=== PATIENT | female | born 1955 | race Caucasian/White ===

== ENCOUNTER 2016-10-16 17:33 | Emergency (ER) | payer OTHER ==
[~2016-10-16] VITALS: Ht 160 cm; Wt 92.6 kg
[~2016-10-16 17:33] MED LIST: CLON2TAB3 PO; DOCU-94 PO; DRGTP50 TD; FURO20TA PO; PRLSR20 PO
[2016-10-16 17:37] VITALS: TEMP 36.7; Ht 160 cm; Wt 92.6 kg
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
--- NOTE | 2016-10-16 18:24 | DIAGNOSTIC IMAGING REPORT ---
SINGLE VIEW CHEST CLINICAL HISTORY: Cough FINDINGS: An AP, portable, upright chest radiograph is compared to study dated 05/05/2015. The examination is degraded by portable technique, apical lordotic positioning, and patient rotation. The cardiomediastinal silhouette is unremarkable. There is chronic elevation of left hemidiaphragm and bibasilar atelectasis. No airspace consolidation is seen typical for pneumonia and there is no large pleural effusion. No pneumothorax is seen. The skeletal structures are osteopenic. Mild thoracic scoliosis is observed. IMPRESSION: No acute cardiopulmonary abnormality. Electronically signed by: Nolan Gambino M.D. 10/16/2016 6:23 PM Dictated Date/Time: 10/16/2016 6:22 PM
--- NOTE | 2016-10-16 18:51 | DIAGNOSTIC IMAGING REPORT ---
CT SCAN OF THE BRAIN WITHOUT IV CONTRAST CLINICAL HISTORY: Headache. COMPARISON STUDY: CT of the brain dated 10/19/2014. TECHNIQUE: Unenhanced axial CT scan of the brain is performed from the vertex to the skull base. CT DOSE: 974.62 mGy.cm FINDINGS: Brain parenchyma: There is minimal subcortical and periventricular microangiopathic change. There is no hemorrhage, mass effect, or evidence of acute territorial ischemia by CT criteria. Gonzalez-white matter is preserved. No extra-axial fluid collection is seen. Ventricles, sulci, cisterns: Normal in configuration. Intracranial vasculature: There is mild atherosclerotic calcification of the cavernous carotid arteries. Calvarium: Unremarkable. Sinuses and mastoids: The visualized paranasal sinuses are clear. The mastoid air cells are well pneumatized. Orbits: The bony orbits are grossly intact. There is evidence of bilateral ocular lens surgery. IMPRESSION: No acute intracranial abnormality. Electronically signed by: Nolan Gambino M.D. 10/16/2016 6:50 PM Dictated Date/Time: 10/16/2016 6:48 PM
[2016-10-16 18:54] LABS: BASO % 0.4 %; BASO ABS # 0.02 K/uL (0-0.2); COMPLETE YES; EOS % 0.8 %; HEMATOCRIT 36.9 % (37-47); IG% 0.2 %; LYMPH % 41.4 %; LYMPH ABS # 2.13 K/uL (1.2-3.4); MEAN CELL VOLUME 89.3 fL (80-100); MEAN CORPUSCULAR HEMOGLOBIN 31.5 pg (25-34); MEAN CORPUSCULAR HGB CONC 35.2 g/dl (32-36); MEAN PLATELET VOLUME 9.5 fL (7.4-10.4); MONO % 7.4 %; NEUT % 49.8 %; PLATELET COUNT 204 K/uL (130-400); RED BLOOD COUNT 4.13 M/uL (4.2-5.4); WHITE BLOOD COUNT 5.15 K/uL (4.8-10.8)
--- NOTE | 2016-10-16 18:55 | DIAGNOSTIC IMAGING REPORT ---
CT SCAN OF THE CERVICAL SPINE CLINICAL HISTORY: Neck pain. COMPARISON STUDY: CT scan of the cervical spine dated 04/22/2012. TECHNIQUE: CT scan of the cervical spine is performed from the skull base to the upper thoracic spine. Images are reviewed in the axial, sagittal, and coronal planes. IV contrast was not administered for this examination. CT DOSE: Reported separately under the concurrently performed CT scan of the brain. FINDINGS: Skeletal structures: The skeletal structures are osteopenic. There is no evidence of fracture or subluxation involving the cervical spine. Vertebral body height is maintained. There is minimal anterolisthesis at C4-C5. Alignment is otherwise preserved. There is straightening of cervical lordosis with reversal centered at C4-C5. The odontoid process and lateral masses are intact. The atlantoaxial articulation is preserved noting productive degenerative change. The spinous processes appear intact. Tiny anterior osteophytes are seen at C5-C6. There is mild multilevel cervical spondylosis. Facet arthropathy is seen at several levels. Intervertebral discs: Mild disc space narrowing is seen at C4-C5 and C5-C6. The remaining disc spaces are well maintained. Central canal: There are tiny posterior disc osteophyte complexes at C3-C4, C4-C5, C5-C6. These may contribute to minimal acquired compromise of the central canal. Soft tissues: The prevertebral and paraspinous soft tissues are within normal limits. There is atherosclerotic calcification of the carotid bulbs. Calvarium: The visualized calvarium at the skull base appears intact. Brain parenchyma: Partially visualized brain parenchyma the skull base is within normal limits. Sinuses and mastoids: The visualized paranasal sinuses are clear. The mastoid air cells are well pneumatized. Lung apices: Mild emphysematous change is seen at the apices. Partially imaged atypical lung parenchyma is otherwise clear as visualized. IMPRESSION: 1. There is no evidence of fracture or subluxation involving the cervical spine. 2. Osteopenia and mild spondylotic change as above. Electronically signed by: Nolan Gambino M.D. 10/16/2016 6:54 PM Dictated Date/Time: 10/16/2016 6:47 PM
[2016-10-16] MEDS ORDERED: ACETAMINOPHEN 500 MG TAB PO STA (19:09)
[2016-10-16 19:11] LABS: BUN/CREATININE RATIO 11.5 (10-20); CALCIUM 8.9 mg/dl (8.5-10.1); MAGNESIUM 2.2 mg/dl (1.8-2.4); POTASSIUM 3.7 mmol/L (3.5-5.1)
[2016-10-16 19:17] LABS: URINE APPEARANCE CLEAR (CLEAR); URINE BILIRUBIN NEG (NEG); URINE COLOR YELLOW; URINE NITRITE NEG (NEG); URINE PH 6.5 (4.5-7.5); UROBILINOGEN NEG (NEG); ZZUR CULT IF INDIC CLEAN CATCH NO
[2016-10-16 19:22] LABS: ALB/GLOB RATIO 1.1 (0.9-2); THYROID STIMULATING HORMONE 2.1 uIu/ml (0.300-4.500)
[2016-10-16 19:43] LABS: MANUAL MICROSCOPIC REQUIRED? NO; REVIEW REQ? NO
[2016-10-16 20:10] LABS: LYME DISEASE AB IGG NEG (NEG); LYME DISEASE AB IGM NEG (NEG)
[2016-10-16 22:02] VITALS: PULSE 78; O2SAT 97
[2016-10-16 22:05] VITALS: BP 130/78
[2016-10-17 05:05] LABS: RAPID PLASMA REAGIN NONREACTIVE (NONREACT)
[2016-10-20 10:08] LABS: CHLAMYDIA TRACH RNA*** NOT DETECTED (NOT DETECTED); GC (NEIS GONORRHOEAE)RNA** NOT DETECTED (NOT DETECTED)
== END 2016-10-16 22:07 | disposition home or self-care (01) ==
LOC: C.EDB 17:34
DX: F41.9 Anxiety disorder, unspecified (principal); Z20.2 Contact with and (suspected) exposure to infections with a predominantly sexual mode of transmission; C54.2 Malignant neoplasm of myometrium; I10 Essential (primary) hypertension; F43.10 Post-traumatic stress disorder, unspecified; G45.9 Transient cerebral ischemic attack, unspecified; Z82.49 Family history of ischemic heart disease and other diseases of the circulatory system; F17.200 Nicotine dependence, unspecified, uncomplicated

== ENCOUNTER 2017-06-25 11:35 | Inpatient (IN) | payer OTHER ==
[~2017-06-25] VITALS: Ht 160 cm; Wt 89.4 kg
[2017-06-25] MEDS ORDERED: ONDANSETRON INJ 2 MG/ML 2 ML VIAL IV STA (12:13)
--- NOTE | 2017-06-25 12:38 | EMERGENCY ROOM VISIT NOTE ---
History Report prepared by Faith: Chet Estrella Under the Supervision of: Dr. Srinivasa Garg D.O. First contact with patient: 11:57 Chief Complaint: SWELLING TO EXTREMITY Stated Complaint: SEVERE SWELLING AND PAIN History of Present Illness The patient is a 61 year old female who presents to the Emergency Room with complaints of worsening pain in the left lower extremity that she has been experiencing for the past 2 months. The patient has an extensive history of Lumbar back surgeries and has followed with multiple different surgeons. The patient started to notice "severe" pain in the left hip, knee, and groin 2 months ago. This are all new symptoms that are separate from her normal back pain. She describes the pain in her left groin as "burning" and "on fire." She is also complaining of a migraine headache across her forehead. She has a history of migraines, but has not had one in a long time. There is pain in her left lumbar area that is radiating into her left gluteal region. She was sent here by a physician today with concern for fluid accumulation in the left knee, and to search for a possible deep vein thrombosis. She is not on any blood thinners. The back surgeries have been performed at L3, L4, L5, and S1. She did have a MRI of the Left Knee and Hip performed Source of History: patient Onset: 2 months [employer] Position: leg (left), knee (left), other (Left hip, left groin) Quality: burning Timing: worsening Associated Symptoms: + headache Review of Systems See HPI for pertinent positives & negatives. A total of 10 systems reviewed and were otherwise negative. Past Medical & Surgical Medical Problems: (1) Anxiety (2) Depression (3) Dyslipidemia Surgical Problems: (1) H/O tubal ligation (2) History of lumbar surgery (3) S/P lumbar fusion (4) S/P rotator cuff repair Family History FH: lung disease FHx: heart disease Kidney disease Social History Smoking Status: Current Every Day Smoker Alcohol Use: none Drug Use: none Marital Status: single Housing Status: lives with family Occupation Status: employed Current/Historical Medications Scheduled Omeprazole (Prilosec), 20 MG PO DAILY Scheduled PRN Clonazepam (Klonopin), 2 MG PO BID PRN for Anxiety Furosemide (Lasix), 20 MG PO DAILY PRN for edema Allergies Coded Allergies: Penicillin V (Verified Allergy, Severe, HIVES/SOB, 3/22/18) Sulfa Antibiotics (Verified Allergy, Mild, RASH, 06/25/17) Bupropion (Verified Allergy, Unknown, generalized swelling, 06/25/17) Cephalexin (Verified Allergy, Unknown, ? reaction, 06/25/17) Hydrocortisone (Verified Allergy, Unknown, pruritis, 06/25/17) with ear drops Ibuprofen (Verified Allergy, Unknown, edema, 06/25/17) Macrolides and Ketolides (Verified Allergy, Unknown, pruritis and rash, ) patient states she is allergic to "all -mycins" Methylprednisolone (Verified Allergy, Unknown, CHF, 06/25/17) Physical Exam Vital Signs Date Time Temp Pulse Resp B/P (MAP) Pulse Ox O2 Delivery O2 Flow Rate FiO2 06/25/17 17:29 64 20 109/65 97 Room Air 06/25/17 15:57 68 18 133/80 96 Room Air 06/25/17 14:36 68 20 134/62 99 Room Air 06/25/17 11:53 36.7 87 20 156/83 98 Room Air Physical Exam GENERAL: Patient is awake, alert, and anxious/uncomfortable appearing. She is tearful. EYES: The conjunctivae are clear. The pupils are round and reactive. EARS, NOSE, MOUTH AND THROAT: The nose is without any evidence of any deformity. Mucous membranes are moist tongue is midline NECK: The neck is nontender and supple. RESPIRATORY: Normal respiratory effort is noted there is no evidence of wheezing rhonchi or rales CARDIOVASCULAR: Regular rate and rhythm noted there no murmurs rubs or gallops normal S1 normal S2 GASTROINTESTINAL: The abdomen is soft. Bowel sounds are present in all quadrants. Abdomen is nontender BACK: There is previous surgical scars noted in the lower thoracic and lumbar spine. No midline tenderness or or step-off noted range of motion in flexion extension as well as rotation no signs of muscle spasm noted MUSCULOSKELETAL/EXTREMITIES: There is no evidence of gross deformity. There is pain with ROM of the left hip, left knee. There is no warmth appreciated in the left knee. SKIN: There is no obvious evidence of any rash. There are no petechiae, pallor or cyanosis noted. Pulses were symmetric. NEUROLOGIC: Patient is awake alert and oriented x3. Patellar reflexes are 1+ bilaterally. Achilles reflex is absent on the left and 1+ on the right. Great toe raise is diminished on the left. Medical Decision & Procedures ER Provider Diagnostic Interpretation: Radiology results as stated below per my review and radiologist interpretation: LEFT LOWER EXTREMITY VENOUS DOPPLER HISTORY: Left leg pain and burning COMPARISON STUDY: None. FINDINGS: There is normal compressibility, flow, and augmentation within the left lower extremity deep venous system. IMPRESSION: No DVT within the left lower extremity. Electronically signed by: Antonio Lew M.D. 06/25/2017 1:47 PM Dictated Date/Time: 06/25/2017 1:46 PM LUMBAR SPINE W/O CONTRAST CLINICAL HISTORY: 61 years-old Female presenting with low back pain, tailbone numbness, recent migraine, history of stroke, left-sided groin pain, no history of cancer or injury. TECHNIQUE: Multisequence, multiplanar MR imaging of the lumbar spine was performed without the use of intravenous contrast. IV contrast: None. COMPARISON: CT from 11/22/2015. FINDINGS: Localizer images: Bilateral posterior transpedicular screw and bubba fixation of L4-S1 with interbody spacers at L4-5 and L5-S1. In addition, laminectomy defects at L4-5 noted. No fluid collection in the operative bed. Nonspecific T2 hyperintensity in the operative bed likely indicates edema or granulation tissue. Adequate posterior decompression. No convincing evidence of a pseudomeningocele. Normal lumbar lordosis. Vertebral bodies maintain normal height, alignment, and bone marrow signal intensity. Mild disc desiccation of L2-3 with slight height loss. Small disc osteophyte complexes noted in the lower thoracic spine. Small disc bulges in combination with ligamentum flavum hypertrophy and facet arthropathy result in mild bilateral neural foraminal narrowing at L2-3 and moderate right and mild left neural foraminal narrowing at L3-4. The disc bulge may abut the exiting right L3 nerve root. No significant spinal canal narrowing. The spinal cord ends in good position at L1. Cauda equina normal in morphology. Paraspinal soft tissues normal apart from postsurgical change. IMPRESSION: 1. Postsurgical changes of L4-S1 posterior fusion with L4-5 laminectomies. Adequate posterior decompression. 2. Degenerative change at L2-3 and L3-4 results in neural foraminal narrowing most severe on the right at L3-4 with abutment of the exiting right L3 nerve root. 3. No evidence of cauda equina impingement or significant spinal canal stenosis. Electronically signed by: Mart Kim M.D. 06/25/2017 2:30 PM Dictated Date/Time: 06/25/2017 2:25 PM Brain MRI WITHOUT CONTRAST HISTORY: Head CT 10/16/2016. TECHNIQUE: Multiplanar multisequence MRI of the brain was performed without the use of contrast. COMPARISON STUDY: None. FINDINGS: There are no areas of restricted diffusion to suggest acute infarction. The midline structures are intact. The paranasal sinuses are clear. The mastoid air cells are clear. The ventricles and sulci are within normal limits for age. There is no mass, hematoma, midline shift. The major vascular flow-voids at the skull base are well maintained. Multiple scattered foci of T2 hyperintensity seen within the periventricular and subcortical white matter of the supratentorial brain. IMPRESSION: 1. No acute intracranial abnormality. 2. Scattered foci of T2 hyperintensity seen within the periventricular and subcortical white matter are nonspecific but favor microvascular ischemic change. Migraines or less likely a demyelinating disease or Lyme's disease could also have a similar appearance. Electronically signed by: Antonio Lew M.D. 06/25/2017 2:13 PM Dictated Date/Time: 06/25/2017 2:07 PM Laboratory Results 06/25/17 12:37 Red Blood Count 4.65, Mean Corpuscular Volume 89.2, Mean Corpuscular Hemoglobin 31.8, Mean Corpuscular Hemoglobin Concent 35.7, Mean Platelet Volume 9.6, Neutrophils (%) (Auto) 56.0, Lymphocytes (%) (Auto) 35.6, Monocytes (%) (Auto) 7.3, Eosinophils (%) (Auto) 0.7, Basophils (%) (Auto) 0.2, Neutrophils # (Auto) 3.29, Lymphocytes # (Auto) 2.09, Monocytes # (Auto) 0.43, Eosinophils # (Auto) 0.04, Basophils # (Auto) 0.01 06/25/17 12:37 Test 06/25/17 12:37 06/25/17 14:40 White Blood Count 5.87 K/uL (4.8-10.8) Red Blood Count 4.65 M/uL (4.2-5.4) Hemoglobin 14.8 g/dL (12.0-16.0) Hematocrit 41.5 % (37-47) Mean Corpuscular Volume 89.2 fL (80-100) Mean Corpuscular Hemoglobin 31.8 pg (25-34) Mean Corpuscular Hemoglobin Concent 35.7 g/dl (32-36) Platelet Count 234 K/uL (130-400) Mean Platelet Volume 9.6 fL (7.4-10.4) Neutrophils (%) (Auto) 56.0 % Lymphocytes (%) (Auto) 35.6 % Monocytes (%) (Auto) 7.3 % Eosinophils (%) (Auto) 0.7 % Basophils (%) (Auto) 0.2 % Neutrophils # (Auto) 3.29 K/uL (1.4-6.5) Lymphocytes # (Auto) 2.09 K/uL (1.2-3.4) Monocytes # (Auto) 0.43 K/uL (0.11-0.59) Eosinophils # (Auto) 0.04 K/uL (0-0.5) Basophils # (Auto) 0.01 K/uL (0-0.2) RDW Standard Deviation 38.9 fL (36.4-46.3) RDW Coefficient of Variation 12.1 % (11.5-14.5) Immature Granulocyte % (Auto) 0.2 % Immature Granulocyte # (Auto) 0.01 K/uL (0.00-0.02) Anion Gap 4.0 mmol/L (3-11) Est Creatinine Clear Calc Drug Dose 63.9 ml/min Estimated GFR () 72.2 Estimated GFR (Non- 62.3 BUN/Creatinine Ratio 15.4 (10-20) Calcium Level 9.4 mg/dl (8.5-10.1) Total Bilirubin 0.4 mg/dl (0.2-1) Direct Bilirubin < 0.1 mg/dl (0-0.2) Aspartate Amino Transf (AST/SGOT) 13 U/L (15-37) Alanine Aminotransferase (ALT/SGPT) 17 U/L (12-78) Alkaline Phosphatase 63 U/L (45-117) Total Protein 8.1 gm/dl (6.4-8.2) Albumin 4.1 gm/dl (3.4-5.0) Lipase 104 U/L (73-393) Lyme Disease IgG Antibody NEG (NEG) Lyme Disease IgM Antibody NEG (NEG) Urine Color YELLOW Urine Appearance CLEAR (CLEAR) Urine pH 6.5 (4.5-7.5) Urine Specific [place] 1.006 (1.000-1.030) Urine Protein NEG (NEG) Urine Glucose (UA) NEG (NEG) Urine Ketones NEG (NEG) Urine Occult Blood NEG (NEG) Urine Nitrite NEG (NEG) Urine Bilirubin NEG (NEG) Urine Urobilinogen NEG (NEG) Urine Leukocyte Esterase NEG (NEG) Laboratory results per my review. Medications Administered Medications (Trade) Dose Ordered Sig/Rolando Route Start Time Stop Time Status Last Admin Dose Admin Morphine Sulfate (MoRPHine SULFATE INJ) 4 mg Q15M PRN IV 06/25/17 12:15 06/25/17 18:57 DC 06/25/17 16:03 4 MG Ondansetron HCl (Zofran Inj) 4 mg NOW STAT IV 06/25/17 12:13 06/25/17 12:16 DC 06/25/17 12:43 4 MG Lorazepam (Ativan Inj) 1 mg NOW STAT IV 06/25/17 12:41 06/25/17 12:42 DC 06/25/17 12:41 1 MG Hydromorphone HCl (Dilaudid Inj) 0.5 mg STK-MED ONCE .ROUTE 06/25/17 17:25 06/25/17 17:26 DC 06/25/17 17:25 0.25 MG ED Course 1207: The patient was evaluated in room C10. A complete history and physical examination were performed. 1213: Ordered Zofran 4 mg IV, Morphine Sulfate 4 mg IV. 1241: Ordered Ativan 1 mg IV. 1617: I discussed the case with Dr. [facility] Hospitalist. She will evaluate the patient for further treatment. Medical Decision Differential diagnosis: Etiologies such as musculoskeletal, disc herniation, fracture, aortic disease, metastatic disease, cord compression, discitis, infection, renal colic, gastrointestinal, acute exacerbation of chronic back pain, sciatica, cauda equina, as well as others were entertained. Nursing notes reviewed. Patient's outpatient radiographic studies were also reviewed. The patient is a 61-year-old female who presented to the emergency department for an evaluation of significant left lower extremity pain. She has been seen for this pain previously and initially this was felt to be isolated to her left lower extremity. She appears to have pain that radiates into the left groin as well as the left side of the back. She has had previous back surgery in the past and states that her lower back feels "numb" and goes down into her coccyx region. I was concerned the patient may be having significant radicular symptoms from her lumbar spine. She also is very concerned about a severe headache that she has as well. The patient was treated with IV pain medication and IV anti-medics. She also requested to have medication for anxiety before having the MRI. I discussed the patient's laboratory and radiographic studies with her. She does appear to have a history and physical exam consistent with a lumbar radiculopathy. No definite cause for her lumbar radiculopathy was found on MRI of the lumbar spine however. This is also significantly worsened in her left hip and her left knee. She did have an MRI of the left knee. This does not appear to be inflammatory or infectious nature. The patient does not wish to have any steroids although given her allergy history I do not feel this would be recommended at this time. The patient was still having very significant pain. For this reason I discussed her case with the on-call [facility] hospitalist. It is possible she may require an inpatient orthopedic consult to further evaluate the cause of her pain and whether or not she requires further imaging of the left hip and left knee. Medication Reconcilliation Current Medication List: was personally reviewed by me Blood Pressure Screening Patient's blood pressure: Elevated blood pressure Referred to hospitalist. Consults Time Called: 1612 Consulting Physician: Dr. Kevin Mallory Returned Call: 1617 I discussed the case with Dr. Kevin Mallory. She will evaluate the patient for further treatment. Impression Primary Impression: Intractable low back pain Additional Impression: Intractable neuropathic pain of left lower extremity Scribe Attestation The scribe's documentation has been prepared under my direction and personally reviewed by me in its entirety. I confirm that the note above accurately reflects all work, treatment, procedures, and medical decision making performed by me. Departure Information Dispostion Being Evaluated By Hospitalist Referrals Deonna Samson M.D. (MEDICAL) (PCP) Patient Instructions [facility] Problem Qualifiers
[2017-06-25] MEDS ORDERED: LORAZEPAM 2 MG/ML 1 ML VIAL IV STA (12:41)
[2017-06-25] MEDS: MoRPHine SULFATE 4 MG/ML 1 ML CARP\\VIAL IV PRN ×3 (12:43→16:03)
[2017-06-25 12:49] LABS: BASO % 0.2 %; BASO ABS # 0.01 K/uL (0-0.2); EOS % 0.7 %; EOS ABS # 0.04 K/uL (0-0.5); HEMATOCRIT 41.5 % (37-47); HEMOGLOBIN 14.8 g/dL (12.0-16.0); IG# 0.01 K/uL (0.00-0.02); LYMPH % 35.6 %; LYMPH ABS # 2.09 K/uL (1.2-3.4); MEAN CELL VOLUME 89.2 fL (80-100); MEAN CORPUSCULAR HEMOGLOBIN 31.8 pg (25-34); MEAN CORPUSCULAR HGB CONC 35.7 g/dl (32-36); MEAN PLATELET VOLUME 9.6 fL (7.4-10.4); MONO % 7.3 %; MONO ABS # 0.43 K/uL (0.11-0.59); NEUT ABS # 3.29 K/uL (1.4-6.5); PLATELET COUNT 234 K/uL (130-400); RED CELL DISTRIBUTION WIDTH CV 12.1 % (11.5-14.5); RED CELL DISTRIBUTION WIDTH SD 38.9 fL (36.4-46.3); WHITE BLOOD COUNT 5.87 K/uL (4.8-10.8)
[2017-06-25 13:09] LABS: ALBUMIN 4.1 gm/dl (3.4-5.0); ALT/SGPT 17 U/L (12-78); AST/SGOT 13 U/L (15-37); BLOOD UREA NITROGEN 15 mg/dl (7-18); CALCIUM 9.4 mg/dl (8.5-10.1); CARBON DIOXIDE 27 mmol/L (21-32); CREATININE 0.98 mg/dl (0.60-1.20); GLUCOSE 92 mg/dl (70-99); LIPASE 104 U/L (73-393); SODIUM 137 mmol/L (136-145)
[2017-06-25 13:12] LABS: ALKALINE PHOSPHATASE 63 U/L (45-117); TOTAL PROTEIN 8.1 gm/dl (6.4-8.2)
--- NOTE | 2017-06-25 13:48 | DIAGNOSTIC IMAGING REPORT ---
LEFT LOWER EXTREMITY VENOUS DOPPLER HISTORY: Left leg pain and burning COMPARISON STUDY: None. FINDINGS: There is normal compressibility, flow, and augmentation within the left lower extremity deep venous system. IMPRESSION: No DVT within the left lower extremity. Electronically signed by: Antonio Lew M.D. 06/25/2017 1:47 PM Dictated Date/Time: 06/25/2017 1:46 PM
[2017-06-25] MEDS ORDERED: PRLSR20 PO (14:00)
--- NOTE | 2017-06-25 14:14 | DIAGNOSTIC IMAGING REPORT ---
Brain MRI WITHOUT CONTRAST HISTORY: Head CT 10/16/2016. TECHNIQUE: Multiplanar multisequence MRI of the brain was performed without the use of contrast. COMPARISON STUDY: None. FINDINGS: There are no areas of restricted diffusion to suggest acute infarction. The midline structures are intact. The paranasal sinuses are clear. The mastoid air cells are clear. The ventricles and sulci are within normal limits for age. There is no mass, hematoma, midline shift. The major vascular flow-voids at the skull base are well maintained. Multiple scattered foci of T2 hyperintensity seen within the periventricular and subcortical white matter of the supratentorial brain. IMPRESSION: 1. No acute intracranial abnormality. 2. Scattered foci of T2 hyperintensity seen within the periventricular and subcortical white matter are nonspecific but favor microvascular ischemic change. Migraines or less likely a demyelinating disease or Lyme's disease could also have a similar appearance. Electronically signed by: Antonio Lew M.D. 06/25/2017 2:13 PM Dictated Date/Time: 06/25/2017 2:07 PM
--- NOTE | 2017-06-25 14:31 | DIAGNOSTIC IMAGING REPORT ---
LUMBAR SPINE W/O CONTRAST CLINICAL HISTORY: 61 years-old Female presenting with low back pain, tailbone numbness, recent migraine, history of stroke, left-sided groin pain, no history of cancer or injury. TECHNIQUE: Multisequence, multiplanar MR imaging of the lumbar spine was performed without the use of intravenous contrast. IV contrast: None. COMPARISON: CT from 11/22/2015. FINDINGS: Localizer images: Bilateral posterior transpedicular screw and bubba fixation of L4-S1 with interbody spacers at L4-5 and L5-S1. In addition, laminectomy defects at L4-5 noted. No fluid collection in the operative bed. Nonspecific T2 hyperintensity in the operative bed likely indicates edema or granulation tissue. Adequate posterior decompression. No convincing evidence of a pseudomeningocele. Normal lumbar lordosis. Vertebral bodies maintain normal height, alignment, and bone marrow signal intensity. Mild disc desiccation of L2-3 with slight height loss. Small disc osteophyte complexes noted in the lower thoracic spine. Small disc bulges in combination with ligamentum flavum hypertrophy and facet arthropathy result in mild bilateral neural foraminal narrowing at L2-3 and moderate right and mild left neural foraminal narrowing at L3-4. The disc bulge may abut the exiting right L3 nerve root. No significant spinal canal narrowing. The spinal cord ends in good position at L1. Cauda equina normal in morphology. Paraspinal soft tissues normal apart from postsurgical change. IMPRESSION: 1. Postsurgical changes of L4-S1 posterior fusion with L4-5 laminectomies. Adequate posterior decompression. 2. Degenerative change at L2-3 and L3-4 results in neural foraminal narrowing most severe on the right at L3-4 with abutment of the exiting right L3 nerve root. 3. No evidence of cauda equina impingement or significant spinal canal stenosis. Electronically signed by: Mart Kim M.D. 06/25/2017 2:30 PM Dictated Date/Time: 06/25/2017 2:25 PM
[2017-06-25] MEDS ORDERED: HYDROmorphone INJ 0.5 MG/0.5 ML SYR ONE (17:25)
[2017-06-25] MEDS ORDERED: HYDROmorphone INJ 0.5 MG/0.5 ML SYR IV ONE (17:30)
[2017-06-25] MEDS ORDERED: ACETAMINOPHEN 325 MG TAB PO PRN (17:30)
[2017-06-25] MEDS ORDERED: CLONAZEPAM 1 MG TAB PO PRN (17:45)
[2017-06-25 18:30] VITALS: O2SAT 94
--- NOTE | 2017-06-25 19:13 | History and Physical ---
History & Physical Date & Time of Service: Jun 25, 2017 ~ 17:00 Chief Complaint: Left Knee and Hip Pain Primary Care Physician: Deonna Samson M.D. (MEDICAL) History of Present Illness 61-year-old female who presents to the ER with left hip and knee pain. Patient reports increasing hip and knee pain for the past few months. Patient has been evaluated as an outpatient with [facility] orthopedics. Patient had an x-ray of her hip in April that showed osteoarthritis. MRI of the left knee on 2017 showed a small to moderate sized Dennison's cyst. Patient was placed in a left knee brace however she reports no improvement in her symptoms with use of it. 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 She has pain in her low back that radiates around into the left hip and to the left groin and down the leg. She also has pain behind the left knee that she feels radiates up into the left hip as well. Pain is severe. She has had a persistent headache for the past several days. She feels it is due to the anxiety of the severe hip and knee pain. She denies chest pain or shortness of breath. No lightheadedness, dizziness, diaphoresis, or syncopal events. No abdominal pain, nausea, vomiting, or diarrhea. She denies fever and chills. No urinary symptoms. In the ED, patient had brain and lumbar spine MRIs and left lower extremity Doppler that are unremarkable. Labs are unremarkable. Vital signs are stable. Patient was given IV morphine, which she reports only relieved her pain for a few minutes. Past Medical/Surgical History Medical Problems: (1) Anxiety Status: Chronic (2) Depression Status: Chronic (3) Dyslipidemia Status: Chronic Surgical Problems: (1) H/O tubal ligation Status: Chronic (2) History of lumbar surgery Status: Resolved (3) S/P lumbar fusion Status: Chronic (4) S/P rotator cuff repair Status: Chronic Family History FHx: heart disease FATHER MOTHER Social History Smoking Status: Current Every Day Smoker Alcohol Use: none Immunizations History of Tetanus Vaccine?: Yes Tetanus Immunization Date: May 06, 2010 History of Pneumococcal: Yes Pneumococcal Date: May 06, 2010 Allergies Coded Allergies: Penicillin V (Verified Allergy, Severe, HIVES/SOB, 06/25/17) Sulfa Antibiotics (Verified Allergy, Mild, RASH, 06/25/17) Bupropion (Verified Allergy, Unknown, generalized swelling, 06/25/17) Cephalexin (Verified Allergy, Unknown, ? reaction, 06/25/17) Hydrocortisone (Verified Allergy, Unknown, pruritis, 06/25/17) with ear drops Ibuprofen (Verified Allergy, Unknown, edema, 06/25/17) Macrolides and Ketolides (Verified Allergy, Unknown, pruritis and rash, ) patient states she is allergic to "all -mycins" Methylprednisolone (Verified Allergy, Unknown, CHF, 06/25/17) Home Medications Scheduled Omeprazole (Prilosec), 20 MG PO DAILY Scheduled PRN Clonazepam (Klonopin), 2 MG PO BID PRN for Anxiety Furosemide (Lasix), 20 MG PO DAILY PRN for edema Review of Systems ROS per HPI, all other systems reviewed and negative Physical Exam Vital Signs Date Time Temp Pulse Resp B/P (MAP) Pulse Ox O2 Delivery O2 Flow Rate FiO2 06/25/17 18:16 62 20 113/60 95 Room Air 06/25/17 17:29 64 20 109/65 97 Room Air 06/25/17 15:57 68 18 133/80 96 Room Air 06/25/17 14:36 68 20 134/62 99 Room Air 06/25/17 11:53 36.7 87 20 156/83 98 Room Air General Appearance: WD/WN, no apparent distress Head: normocephalic, atraumatic Eyes: normal inspection, EOMI, sclerae normal ENT: hearing grossly normal, + pertinent finding (Mucous membranes moist) Neck: supple, no JVD, trachea midline Respiratory/Chest: lungs clear, normal breath sounds, no respiratory distress Cardiovascular: regular rate, rhythm, no edema, normal peripheral pulses Abdomen/GI: normal bowel sounds, non tender, soft, no organomegaly Extremities/Musculoskelatal: no calf tenderness, normal capillary refill, + pertinent finding (Pain with palpation over the left hip and into the left groin , pain with palpation of the left posterior knee) Neurologic/Psych: no motor/sensory deficits, alert, normal mood/affect, oriented x 3 Skin: normal color, warm/dry Diagnostics Laboratory Results Results Past 24 Hours Test 06/25/17 12:37 06/25/17 14:40 Range/Units White Blood Count 5.87 4.8-10.8 K/uL Red Blood Count 4.65 4.2-5.4 M/uL Hemoglobin 14.8 12.0-16.0 g/dL Hematocrit 41.5 37-47 % Mean Corpuscular Volume 89.2 80-100 fL Mean Corpuscular Hemoglobin 31.8 25-34 pg Mean Corpuscular Hemoglobin Concent 35.7 32-36 g/dl Platelet Count 234 130-400 K/uL Mean Platelet Volume 9.6 7.4-10.4 fL Neutrophils (%) (Auto) 56.0 % Lymphocytes (%) (Auto) 35.6 % Monocytes (%) (Auto) 7.3 % Eosinophils (%) (Auto) 0.7 % Basophils (%) (Auto) 0.2 % Neutrophils # (Auto) 3.29 1.4-6.5 K/uL Lymphocytes # (Auto) 2.09 1.2-3.4 K/uL Monocytes # (Auto) 0.43 0.11-0.59 K/uL Eosinophils # (Auto) 0.04 0-0.5 K/uL Basophils # (Auto) 0.01 0-0.2 K/uL RDW Standard Deviation 38.9 36.4-46.3 fL RDW Coefficient of Variation 12.1 11.5-14.5 % Immature Granulocyte % (Auto) 0.2 % Immature Granulocyte # (Auto) 0.01 0.00-0.02 K/uL Sodium Level 137 136-145 mmol/L Potassium Level 4.0 3.5-5.1 mmol/L Chloride Level 106 98-107 mmol/L Carbon Dioxide Level 27 21-32 mmol/L Anion Gap 4.0 3-11 mmol/L Blood Urea Nitrogen 15 7-18 mg/dl Creatinine 0.98 0.60-1.20 mg/dl Est Creatinine Clear Calc Drug Dose 63.9 ml/min Estimated GFR () 72.2 Estimated GFR (Non- 62.3 BUN/Creatinine Ratio 15.4 10-20 Random Glucose 92 70-99 mg/dl Calcium Level 9.4 8.5-10.1 mg/dl Total Bilirubin 0.4 0.2-1 mg/dl Direct Bilirubin < 0.1 0-0.2 mg/dl Aspartate Amino Transf (AST/SGOT) 13 15-37 U/L Alanine Aminotransferase (ALT/SGPT) 17 12-78 U/L Alkaline Phosphatase 63 45-117 U/L Total Protein 8.1 6.4-8.2 gm/dl Albumin 4.1 3.4-5.0 gm/dl Lipase 104 73-393 U/L Lyme Disease IgG Antibody NEG NEG Lyme Disease IgM Antibody NEG NEG Urine Color YELLOW Urine Appearance CLEAR CLEAR Urine pH 6.5 4.5-7.5 Urine Specific [place] 1.006 1.000-1.030 Urine Protein NEG NEG Urine Glucose (UA) NEG NEG Urine Ketones NEG NEG Urine Occult Blood NEG NEG Urine Nitrite NEG NEG Urine Bilirubin NEG NEG Urine Urobilinogen NEG NEG Urine Leukocyte Esterase NEG NEG Diagnostic Radiology LUMBAR SPINE MRI IMPRESSION: 1. Postsurgical changes of L4-S1 posterior fusion with L4-5 laminectomies. Adequate posterior decompression. 2. Degenerative change at L2-3 and L3-4 results in neural foraminal narrowing most severe on the right at L3-4 with abutment of the exiting right L3 nerve root. 3. No evidence of cauda equina impingement or significant spinal canal stenosis. LEFT LOWER EXTREMITY DOPPLER IMPRESSION: No DVT within the left lower extremity. BRAIN MRI IMPRESSION: 1. No acute intracranial abnormality. 2. Scattered foci of T2 hyperintensity seen within the periventricular and subcortical white matter are nonspecific but favor microvascular ischemic change. Migraines or less likely a demyelinating disease or Lyme's disease could also have a similar appearance. Impression Assessment and Plan LEFT HIP AND LEFT KNEE PAIN -Admit to [facility] -Patient presenting with increasing left hip and left knee pain for the past few months, has been evaluated as an outpatient by orthopedics, had left knee MRI on 05/09/17 that showed a small to moderate sized Dennison's cyst, hip x-ray on showed osteoarthritis of both hips left greater than right -Lumbar spine MRI in the ED negative for acute findings -Will check hip x-ray [facility] -Consult orthopedics ABNORMAL BRAIN MRI -Brain MRI questioning microvascular versus demyelination disease -Will have neurology evaluate the patient ANXIETY -Continue as needed clonazepam DVT PROPHYLAXIS -SQ Lovenox DISPOSITION -The patient will be placed as observation status for now until further work up is complete. Patient seen and examined care coordinated with Jennifer ALVES 61-year-old female, presents with intractable left hip and knee pain Imaging negative Physical exam: Please refer to physical exam done by Jennifer moses PA-C Assessment and plan: Left hip/knee pain: No evidence of fracture noted Has moderate DJD in both hips left greater than right noted on hip x-ray on 2016 Orthopedic consult PT OT Please refer to documentation by Jennifer PADRON discussion of other issues Nani Brown MD Resuscitation Status VTE Prophylaxis Will order VTE Prophylaxis: Yes
[2017-06-25 19:45] VITALS: BP 113/60; TEMP 36.7; O2SAT 95; Ht 160 cm; Wt 89.4 kg
--- NOTE | 2017-06-25 20:56 | DIAGNOSTIC IMAGING REPORT ---
L HIP UNILATERAL 2 VIEWS CLINICAL HISTORY: left hip pain pain COMPARISON: None. DISCUSSION: Moderate degenerative narrowing left hip joint space. Mild peripheral osteophytic reaction. Mild calcific trochanteric bursitis. No evidence for acetabular protrusion. There is no evidence for soft tissue swelling. IMPRESSION: Moderate degenerative change. Mild calcific trochanteric bursitis. The above report was generated using voice recognition software. It may contain grammatical, syntax or spelling errors. Electronically signed by: Guzman Pagan M.D. 06/25/2017 8:55 PM Dictated Date/Time: 06/25/2017 8:54 PM
[2017-06-25] MEDS: OXYCODONE/ACETAMINOPHEN 7.5-325 TAB PO PRN (21:00)
[2017-06-25] MEDS ORDERED: FURO20TA PO (21:04)
[2017-06-25] MEDS ORDERED: CLON2TAB3 PO (21:04)
[2017-06-25] MEDS ORDERED: INFLUENZA VIRUS QUAD VACCINE 0.5 ML SYR IM. ONE (21:15)
[2017-06-25] MEDS ORDERED: INFLUENZA ADMINISTRATION CHARGE ONE (21:15)
[2017-06-25] MEDS ORDERED: IV FLUIDS COMPLETED PRN (21:45)
[2017-06-25] MEDS ORDERED: HYDROmorphone INJ 1 MG/ML SYR IV STA (21:49)
[2017-06-25] MEDS: ENOXAPARIN 40 MG/0.4 ML SYR SQ SCH (22:05)
[2017-06-25 22:55] VITALS: BP 110/64; PULSE 70; TEMP 36.7; O2SAT 95
[2017-06-25] MEDS: ONDANSETRON INJ 2 MG/ML 2 ML VIAL IV PRN (23:13)
[2017-06-26 08:04] VITALS: BP 122/72; PULSE 68; TEMP 36.8; O2SAT 97
[2017-06-26] MEDS: OXYCODONE/ACETAMINOPHEN 7.5-325 TAB PO PRN ×2 (08:17→08:57)
[2017-06-26] MEDS: ONDANSETRON INJ 2 MG/ML 2 ML VIAL IV PRN ×2 (08:17→08:59)
[2017-06-26] MEDS: PANTOprazole SOD 40 MG TAB PO SCH (09:00)
[2017-06-26 09:07] VITALS: O2SAT 97
--- NOTE | 2017-06-26 09:19 | Orthopedic Consultation ---
Orthopedic Consultation Date of Consultation: Jun 26, 2017. Attending Physician: Leticia Elizabeth M.D. Reason for Consultation: Intractable left hip and knee pain (Will Dodd PA-C) History of Present Illness This 61 yo F was seen this AM, after admission from ED last evening, for severe left hip and knee pain since mid April. When asked what may have exacerbated her pain, patient stated "rough intercourse with her boyfriend." Patient state that pain is excruciating and affecting her daily life. She state that she is unable to bear full wt on the Left LE, has limited ROM in hip and knee. Pain has not been alleviated with PT or OTC pain relievers. Patient state that she was seen by her PCP, NOLBERTO Menchaca and that she contact [facility] but they could not see her until September. Patient states that she felt the need to be evaluated in the ED "to get things taken care of... " and demanded to be evaluated by Dr. Stockton. At this time patient denies CP, SOB, nausea, vomiting, lethargy, numbness/tingling in either LE, or any swelling or discoloration. Pt does c/o of clicking/catching in her left knee and hip with movement. (Will Dodd PA-C) Past Medical/Surgical History Medical Problems: (1) Acute exacerbation of chronic low back pain Status: Acute (2) Chronic back pain Status: Acute (3) Inadequate pain control Status: Acute (4) STD exposure Status: Acute (Will Dodd PA-C) Family History FHx: heart disease FATHER MOTHER (Will Dodd PA-C) FHx: heart disease FATHER MOTHER (Antonio Stockton M.D.) Social History Smoking Status: Current Every Day Smoker Alcohol Use: none Housing Status: lives with family (Will Dodd PA-C) Allergies Coded Allergies: Penicillin V (Verified Allergy, Severe, HIVES/SOB, 06/25/17) Sulfa Antibiotics (Verified Allergy, Mild, RASH, 06/25/17) Bupropion (Verified Allergy, Unknown, generalized swelling, 06/25/17) Cephalexin (Verified Allergy, Unknown, ? reaction, 06/25/17) Hydrocortisone (Verified Allergy, Unknown, pruritis, 06/25/17) with ear drops Ibuprofen (Verified Allergy, Unknown, edema, 06/25/17) Macrolides and Ketolides (Verified Allergy, Unknown, pruritis and rash, ) patient states she is allergic to "all -mycins" Methylprednisolone (Verified Allergy, Unknown, CHF, 06/25/17) Home Medications Scheduled Omeprazole (Prilosec), 20 MG PO DAILY Scheduled PRN Clonazepam (Klonopin), 2 MG PO BID PRN for Anxiety Furosemide (Lasix), 20 MG PO DAILY PRN for edema Current Inpatient Medications Current Inpatient Medications Medications (Trade) Dose Ordered Sig/Rolando Route Start Time Stop Time Status Last Admin Dose Admin Enoxaparin Sodium (Lovenox Inj) 40 mg Q24H SQ 06/25/17 21:00 07/25/17 20:59 06/25/17 22:05 40 MG Acetaminophen (Tylenol Tab) 650 mg Q4H PRN PO 06/25/17 17:30 07/25/17 17:29 Ondansetron HCl (Zofran Inj) 4 mg Q6H PRN IV 06/25/17 17:30 07/25/17 17:29 06/25/17 23:13 4 MG Oxycodone/ Acetaminophen (Percocet 7.5-325MG Tab) 1 tab Q4H PRN PO 06/25/17 17:30 07/09/17 17:29 06/26/17 08:57 1 TAB Clonazepam (Klonopin Tab) 2 mg BID PRN PO 06/25/17 17:45 07/25/17 17:44 Pantoprazole Sodium (Protonix Tab) 40 mg DAILY PO 06/26/17 09:00 07/26/17 08:59 Miscellaneous (Iv Fluids Completed) 1 ea PRN PRN N/A 06/25/17 21:45 06/25/18 21:44 (Will Dodd, PAFannieC) Review of Systems Constitutional: + weakness (in left lower extremity), No fever, No chills, No sweats, No weight loss, No fatigue, No problem reported Respiratory: No cough, No sputum, No wheezing, No shortness of breath, No dyspnea on exertion, No dyspnea at rest, No hemoptysis, No problem reported Cardiovascular: No chest pain, No orthopnea, No PND, No edema, No claudication , No palpitations, No problem reported Musculoskeletal: + joint pain, + muscle pain, No swelling, No calf pain, No problem reported Neurologic: No memory loss, No paralysis, No weakness, No numbness/tingling, No vertigo, No balance problems, No problem reported Integumentary: No rash, No itch, No new/changing skin lesions, No color change , No bleeding, No problem reported (Will Dodd, PA-C) Physical Exam Date Time Temp Pulse Resp B/P (MAP) Pulse Ox O2 Delivery O2 Flow Rate FiO2 06/26/17 08:04 36.8 68 18 122/72 (89) 97 Room Air 06/25/17 23:50 Room Air 06/25/17 22:55 36.7 70 18 110/64 (79) 95 Room Air 06/25/17 19:45 36.7 20 113/60 95 Room Air 06/25/17 18:30 94 Room Air 06/25/17 18:16 62 20 113/60 95 Room Air 06/25/17 17:29 64 20 109/65 97 Room Air 06/25/17 15:57 68 18 133/80 96 Room Air 06/25/17 14:36 68 20 134/62 99 Room Air 06/25/17 11:53 36.7 87 20 156/83 98 Room Air General Appearance: WD/WN, no apparent distress Head: normocephalic, atraumatic Eyes: PERRL Neck: trachea midline Back: + pertinent finding (Tender to palpation over Left lower lumbar paraspinal musculature w/o appreciable spasm.) Extremities/Musculoskelatal: normal inspection, no calf tenderness, no pedal edema, + pertinent finding (Left knee: ROM 12 degrees extension 100 degrees flexion. Crepitation with ROM. Med and Lat joint line tenderness. Non mobile patella. No varus/valgus laxity. Neg Carmelo. Calf soft and supple. Mild referred pain to knee with resisted dorsi/plantar flexion of foot. Left Hip: + log roll. + stenchfield. + SLRT. Internal / Extenal rotation tests very limited due to referred anterior and lateral hip pain. Unalble to perform MAYCOL. Severe referred pain with passive Abduction and Adduction of Lt LE. Moderate tenderness to palpation over anterior and lateral hip. No edema, erythema, ecchymosis or palp deformity in knee or hip. + crepitation with ROM of hip. No shortening or external rotation of Lt LE. NV intact in both LE's. No dermatomal deficit. Periph pulses easily palpable and Cap Refill < 2 seconds.) Neurologic/Psych: alert, oriented x 3 Skin: normal color (Will Dodd, PANicole) Laboratory Results Last 24 Hours Test 06/25/17 12:37 06/25/17 14:40 06/26/17 04:44 White Blood Count 5.87 K/uL Red Blood Count 4.65 M/uL Hemoglobin 14.8 g/dL Hematocrit 41.5 % Mean Corpuscular Volume 89.2 fL Mean Corpuscular Hemoglobin 31.8 pg Mean Corpuscular Hemoglobin Concent 35.7 g/dl Platelet Count 234 K/uL Mean Platelet Volume 9.6 fL Neutrophils (%) (Auto) 56.0 % Lymphocytes (%) (Auto) 35.6 % Monocytes (%) (Auto) 7.3 % Eosinophils (%) (Auto) 0.7 % Basophils (%) (Auto) 0.2 % Neutrophils # (Auto) 3.29 K/uL Lymphocytes # (Auto) 2.09 K/uL Monocytes # (Auto) 0.43 K/uL Eosinophils # (Auto) 0.04 K/uL Basophils # (Auto) 0.01 K/uL RDW Standard Deviation 38.9 fL RDW Coefficient of Variation 12.1 % Immature Granulocyte % (Auto) 0.2 % Immature Granulocyte # (Auto) 0.01 K/uL Prothrombin Time 10.0 SECONDS Prothromb Time International Ratio 1.0 Sodium Level 137 mmol/L Potassium Level 4.0 mmol/L Chloride Level 106 mmol/L Carbon Dioxide Level 27 mmol/L Anion Gap 4.0 mmol/L Blood Urea Nitrogen 15 mg/dl Creatinine 0.98 mg/dl Est Creatinine Clear Calc Drug Dose 63.9 ml/min Estimated GFR () 72.2 Estimated GFR (Non- 62.3 BUN/Creatinine Ratio 15.4 Random Glucose 92 mg/dl Calcium Level 9.4 mg/dl Total Bilirubin 0.4 mg/dl Direct Bilirubin < 0.1 mg/dl Aspartate Amino Transf (AST/SGOT) 13 U/L Alanine Aminotransferase (ALT/SGPT) 17 U/L Alkaline Phosphatase 63 U/L Total Protein 8.1 gm/dl Albumin 4.1 gm/dl Lipase 104 U/L Lyme Disease IgG Antibody NEG Lyme Disease IgM Antibody NEG Urine Color YELLOW Urine Appearance CLEAR Urine pH 6.5 Urine Specific [place] 1.006 Urine Protein NEG Urine Glucose (UA) NEG Urine Ketones NEG Urine Occult Blood NEG Urine Nitrite NEG Urine Bilirubin NEG Urine Urobilinogen NEG Urine Leukocyte Esterase NEG (Will Dodd PA-C) Assessment & Plan Assessment: Intractable Left knee; Left hip osteoarthritis. Plan: Medicine will continue to manage patient while in house. Patient was advised that she may f/u in our clinic next week. Advised her to call to set up an appointment. Patient verbalized understanding and thanked us for seeing her this AM. (Will Dodd PA-C) Reviewed the case with physician dental assistant teacher MILTON Dodd. Reviewed the images independently. She has hip osteoarthritis at moderate level. She has significant spinal stenosis post surgery. Her MRI of her knee is relatively benign. At this point I am suggest a consultation with spine surgeon as an outpatient and orthopedic follow-up for her left hip as an outpatient. There is no indication for any additional orthopedic evaluation or treatment at this point in time. She just a short course of gabapentin and avoid narcotics. Dictated not read. (Antonio Stockton M.D.)
[2017-06-26 10:16] LABS: HEMATOCRIT 39.4 % (37-47); HEMOGLOBIN 13.3 g/dL (12.0-16.0); MEAN CORPUSCULAR HEMOGLOBIN 30.4 pg (25-34); MEAN CORPUSCULAR HGB CONC 33.8 g/dl (32-36); MEAN PLATELET VOLUME 9.3 fL (7.4-10.4); PLATELET COUNT 212 K/uL (130-400); RED CELL DISTRIBUTION WIDTH SD 39.8 fL (36.4-46.3); WHITE BLOOD COUNT 5.18 K/uL (4.8-10.8)
[2017-06-26] MEDS ORDERED: KETOROLAC TROMETHAMINE 30 MG/ML VIAL IV ONE (10:16)
[2017-06-26] MEDS ORDERED: HYDROmorphone INJ 0.5 MG/0.5 ML SYR IV PRN (10:30)
[2017-06-26] MEDS ORDERED: KETOROLAC TROMETHAMINE 30 MG/ML VIAL IV PRN (10:30)
[2017-06-26 10:44] LABS: CALCIUM 8.8 mg/dl (8.5-10.1); CREATININE 1.19 mg/dl (0.60-1.20); POTASSIUM 3.9 mmol/L (3.5-5.1)
--- NOTE | 2017-06-26 13:26 | Neurology Consultation ---
Neurology Consultation Date of Consultation: Jun 26, 2017. Attending Physician: Leticia Elizabeth M.D. Primary Care Physician: Deonna Samson M.D. (MEDICAL) Reason for Consultation: abnormal MRI History of Present Illness Source: patient Manuela is a 61 year old female who has a PMH DL, depression, back surgery presents to the ER with left hip and knee pain. She has had increasing hip and knee pain for the past few months. 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 She has pain in her low back that radiates around into the left hip and to the left groin and down the leg. She also has pain behind the left knee that she feels radiates up into the left hip as well. She has had a persistent headache for the past several days. She feels it is due to the anxiety of the severe hip and knee pain. She states she has tried Excedrin migraine, extra strength tylenol. Denies falls, head trauma, CP, SOB, abdominal pain, +hip and knee pain L. history of migraines but not recently Past Medical/Surgical History Medical Problems: (1) Acute exacerbation of chronic low back pain Status: Acute (2) Chronic back pain Status: Acute (3) Inadequate pain control Status: Acute (4) STD exposure Status: Acute Social History Smoking Status: Current every day smoker Alcohol Use: none Housing Status: lives with family Allergies Coded Allergies: Penicillin V (Verified Allergy, Severe, HIVES/SOB, 06/25/17) Sulfa Antibiotics (Verified Allergy, Mild, RASH, 06/25/17) Bupropion (Verified Allergy, Unknown, generalized swelling, 06/25/17) Cephalexin (Verified Allergy, Unknown, ? reaction, 06/25/17) Hydrocortisone (Verified Allergy, Unknown, pruritis, 06/25/17) with ear drops Ibuprofen (Verified Allergy, Unknown, edema, 06/25/17) Macrolides and Ketolides (Verified Allergy, Unknown, pruritis and rash, ) patient states she is allergic to "all -mycins" Methylprednisolone (Verified Allergy, Unknown, CHF, 06/25/17) Current Inpatient Medications Current Inpatient Medications Medications (Trade) Dose Ordered Sig/Rolando Route Start Time Stop Time Status Last Admin Dose Admin Enoxaparin Sodium (Lovenox Inj) 40 mg Q24H SQ 06/25/17 21:00 07/25/17 20:59 06/25/17 22:05 40 MG Acetaminophen (Tylenol Tab) 650 mg Q4H PRN PO 06/25/17 17:30 07/25/17 17:29 06/26/17 12:31 650 MG Ondansetron HCl (Zofran Inj) 4 mg Q6H PRN IV 06/25/17 17:30 07/25/17 17:29 06/26/17 08:59 4 MG Clonazepam (Klonopin Tab) 2 mg BID PRN PO 06/25/17 17:45 07/25/17 17:44 Pantoprazole Sodium (Protonix Tab) 40 mg DAILY PO 06/26/17 09:00 07/26/17 08:59 Miscellaneous (Iv Fluids Completed) 1 ea PRN PRN N/A 06/25/17 21:45 06/25/18 21:44 Ketorolac Tromethamine (Toradol Inj) 30 mg Q6H PRN IV 06/26/17 10:30 07/01/17 10:29 Hydromorphone HCl (Dilaudid Inj) 0.5 mg Q6H PRN IV 06/26/17 10:30 07/10/17 10:29 Physical Exam Vital Signs (Past 24 Hrs): Date Time Temp Pulse Resp B/P (MAP) Pulse Ox O2 Delivery O2 Flow Rate FiO2 06/26/17 09:07 97 Room Air 06/26/17 08:04 36.8 68 18 122/72 (89) 97 Room Air 06/26/17 08:00 Room Air 06/25/17 23:50 Room Air 06/25/17 22:55 36.7 70 18 110/64 (79) 95 Room Air 06/25/17 19:45 36.7 20 113/60 95 Room Air 06/25/17 18:30 94 Room Air 06/25/17 18:16 62 20 113/60 95 Room Air 06/25/17 17:29 64 20 109/65 97 Room Air 06/25/17 15:57 68 18 133/80 96 Room Air 06/25/17 14:36 68 20 134/62 99 Room Air Physical Exam: Constitutional: appearance nourished, healthy and normal Ears, Nose, Mouth and Throat: mucous membranes moist, no injection and skin normal, eyes normal Cardiovascular: normal S-1 and S-2 and regular rate and rhythm Respiratory: clear to auscultation (CTA) and no rales, rhonchi or wheeze Musculoskeletal: no peripheral edema and good distal pulses Skin: no stigmata of neurocutaneous disease noted and normal and intact Eyes: extraocular muscles intact (EOMI) and pupils equal, round and reactive to light (PERRL) NEUROLOGIC EXAMINATION: Mental status: Alert and interactive Oriented to full date and location Oriented to person Speech fluent with no evidence of aphasia Cranial Nerves smile eye brow raise symmetric Reflexes: Deep tendon reflexes were symmetrical and graded 2/5. Plantar responses were flexor. Sensory: no deficit to vibration, or cool b/l UE/LE Coordination: finger to nose no bi pass Gait/Stance: Posture sitting up bedside Strength: biceps triceps hand manager mail 5/5, hip flex L 4+/5, R 5/5 plantar flex ext 5/5 bilaterally Laboratory Results Past 24 Hours: 06/26/17 10:04 06/26/17 10:04 Test 06/25/17 14:40 06/26/17 10:04 Urine Color YELLOW Urine Appearance CLEAR (CLEAR) Urine pH 6.5 (4.5-7.5) Urine Specific [employer] 1.006 (1.000-1.030) Urine Protein NEG (NEG) Urine Glucose (UA) NEG (NEG) Urine Ketones NEG (NEG) Urine Occult Blood NEG (NEG) Urine Nitrite NEG (NEG) Urine Bilirubin NEG (NEG) Urine Urobilinogen NEG (NEG) Urine Leukocyte Esterase NEG (NEG) Red Blood Count 4.38 M/uL (4.2-5.4) Mean Corpuscular Volume 90.0 fL (80-100) Mean Corpuscular Hemoglobin 30.4 pg (25-34) Mean Corpuscular Hemoglobin Concent 33.8 g/dl (32-36) RDW Standard Deviation 39.8 fL (36.4-46.3) RDW Coefficient of Variation 12.0 % (11.5-14.5) Mean Platelet Volume 9.3 fL (7.4-10.4) Anion Gap 4.0 mmol/L (3-11) Est Creatinine Clear Calc Drug Dose 52.7 ml/min Estimated GFR () 57.1 Estimated GFR (Non- 49.2 BUN/Creatinine Ratio 15.0 (10-20) Calcium Level 8.8 mg/dl (8.5-10.1) Hepatitis C Antibody Screen NEG (NEG) Imaging MRI brain combo- No acute intracranial abnormality. 2. Scattered foci of T2 hyperintensity seen within the periventricular and subcortical white matter are nonspecific but favor microvascular ischemic change. Migraines or less likely a demyelinating disease or Lyme's disease could also have a similar appearance. Impression 61 year old female left hip and knee pain with increased headaches Plan 1. MRI with microvascular changes - history of migraines in past and smoker 2. allergic to steroids or would recommend a steroid taper 3. start magnesium 400 mg and riboflavin 400 mg daily 4. decrease prn medication as she is likely in a rebound cycle 5. in general smokers are less responsive to pain relief -smoking cessation would be recommended 6. will sign off for now and she can follow up in our clinic as out patient for further management I have seen and discussed above patient with Dr Davidson Gonzalez, neurology Patient seen and interviewed and above note reviewed along with imaging studies and agree with the above assessment and plans for management Headache is a side bar issue at this time and can be addressed on outpatient basis mri is normal for age and for someone who has had migraines in the past Davidson Gonzalez MD
[2017-06-26 16:05] VITALS: BP 112/71; PULSE 65; TEMP 36.9; O2SAT 96
--- NOTE | 2017-06-26 17:31 | Progress Note ---
Internal Med Progress Note Date of Service: Jun 26, 2017. Provider Documentation: SUBJECTIVE: The patient was seen and examined. She was admitted with one going pain in the left hip and groin and also left knee. Her left hip was injected at the end of April without much benefit. She has been worried about Dennison's cyst the left knee. Complaints of severe pain in left hip groin and also left knee this morning. OBJECTIVE: Vital Signs-as noted below Exam: General-no apparent distress except pain as mentioned before Eyes-normal ENT-normal Neck-supple Lungs-clear to auscultate bilaterally Heart-regular, no murmur appreciated Abdomen-benign nontender no organomegaly Extremities-no edema Local exam of the left hip-tender greater trochanteric area Hip movement was painful in every direction. Has a very small Dennison's cyst on left side, no fluid in the left knee joint Neuro-alert awake oriented 3 No focal neuro deficit appreciated Lab data as noted below. ASSESSMENT & PLAN: LEFT HIP AND LEFT KNEE PAIN -Patient presenting with increasing left hip and left knee pain for the past few months, has been evaluated as an outpatient by orthopedics, had left knee MRI on 05/09/17 that showed a small to moderate sized Dennison's cyst, hip x-ray on showed osteoarthritis of both hips left greater than right -Lumbar spine MRI in the ED negative for acute findings -Has a lactate he arthritis with greater trochanteric bursitis -Has left knee arthritis with a small Dennison's cyst -Consult orthopedics-appreciate input -We will start intravenous Toradol, IV Dilaudid as needed, PT evaluation tomorrow. -If no improvement of her condition she may need intra-articular injection of steroid ABNORMAL BRAIN MRI -Brain MRI questioning microvascular versus demyelination disease -Will have neurology evaluate the patient-appreciate input -We will prescribe magnesium and vitamin as advised by neurology -No focal sensory and/or motor deficit appreciated. ANXIETY -Continue as needed clonazepam DVT PROPHYLAXIS -SQ Lovenox DISPOSITION -The patient will be placed as observation status for now until further work up is complete. Vital Signs: Date Time Temp Pulse Resp B/P (MAP) Pulse Ox O2 Delivery O2 Flow Rate FiO2 06/26/17 16:05 36.9 65 16 112/71 (85) 96 Room Air 06/26/17 09:07 97 Room Air 06/26/17 08:04 36.8 68 18 122/72 (89) 97 Room Air 06/26/17 08:00 Room Air 06/25/17 23:50 Room Air 06/25/17 22:55 36.7 70 18 110/64 (79) 95 Room Air 06/25/17 19:45 36.7 20 113/60 95 Room Air 06/25/17 18:30 94 Room Air 06/25/17 18:16 62 20 113/60 95 Room Air 06/25/17 17:29 64 20 109/65 97 Room Air Lab Results: Results Past 24 Hours Test 06/26/17 10:04 Range/Units White Blood Count 5.18 4.8-10.8 K/uL Red Blood Count 4.38 4.2-5.4 M/uL Hemoglobin 13.3 12.0-16.0 g/dL Hematocrit 39.4 37-47 % Mean Corpuscular Volume 90.0 80-100 fL Mean Corpuscular Hemoglobin 30.4 25-34 pg Mean Corpuscular Hemoglobin Concent 33.8 32-36 g/dl RDW Standard Deviation 39.8 36.4-46.3 fL RDW Coefficient of Variation 12.0 11.5-14.5 % Platelet Count 212 130-400 K/uL Mean Platelet Volume 9.3 7.4-10.4 fL Sodium Level 139 136-145 mmol/L Potassium Level 3.9 3.5-5.1 mmol/L Chloride Level 104 98-107 mmol/L Carbon Dioxide Level 31 21-32 mmol/L Anion Gap 4.0 3-11 mmol/L Blood Urea Nitrogen 18 7-18 mg/dl Creatinine 1.19 0.60-1.20 mg/dl Est Creatinine Clear Calc Drug Dose 52.7 ml/min Estimated GFR () 57.1 Estimated GFR (Non- 49.2 BUN/Creatinine Ratio 15.0 10-20 Random Glucose 64 70-99 mg/dl Calcium Level 8.8 8.5-10.1 mg/dl Hepatitis C Antibody Screen NEG NEG
--- NOTE | 2017-06-26 19:02 | PROGRESS NOTE ---
DATE: 06/26/2017 ORTHOPEDIC PROGRESS NOTE At this point in time, patient is unsure what her discharge plans are. As I examined her today, it is clear that most of her pain is coming from the L3-L4 disc region of her back. She has back pain that radiates into both buttocks, goes down the lateral aspect of her left thigh, anterior thigh and has marked decreased sensation 50% of what the opposite side is on the right, over the left femoral nerve sensory distribution. Also has some decreased sensation down at the foot on the medial side. Has some weakness of her anterior tib tendon as well. She notes that she also has decreased sensation of the dorsum of the foot about 85% versus normal. Supple log rolling of the hip does not produce any significant groin pain. She mostly has pain in the posterior back SI joint region. Her studies were reviewed and discussed with her, with respect to x-ray of her pelvis and MRI scan of her back. She has an extensive back history, has been followed by Dr. Hill. I would suggest at this point in time that she get an appointment with him. We will place a nonurgent consult for him to see her. With respect to her hip, she already has an appointment scheduled with Dr. Dickinson on 09/17/2017. I suggest she keep that appointment. I do not think she has an urgent need for hip replacement on the left, based on her clinical exam and her x-rays. At this point in time, it appears majority of her problem is related to L3-L4 disk disease and spinal stenosis. She will follow with me on a p.r.n. basis and this was described in detail to patient. She agrees to the plan.
[2017-06-26] MEDS: ENOXAPARIN 40 MG/0.4 ML SYR SQ SCH (20:27)
[2017-06-26 23:18] VITALS: BP 112/74; PULSE 78; TEMP 36.7; O2SAT 98
[2017-06-27 07:12] VITALS: BP 118/75; PULSE 114; TEMP 36.7; O2SAT 96
--- NOTE | 2017-06-27 07:31 | Progress Note ---
Progress Note Date of Service Jun 27, 2017. Progress Note She was sleeping comfortably. Awakes easily. Denies any gross pain. Denies any new numbness or tingling. Vital signs are stable she is afebrile. Gross neurovascular check within normal limits for her. Assessment low back pain spinal stenosis mild hip arthritis. At this point in time the back takes priority. Will sign off case. Dr. Hill to see the patient sometime today.
[2017-06-27] MEDS ORDERED: VITAMIN B COMPLEX TAB PO SCH (09:00)
[2017-06-27] MEDS ORDERED: MAGNESIUM OXIDE 400 MG TAB PO SCH (09:00)
[2017-06-27] MEDS: PANTOprazole SOD 40 MG TAB PO SCH (09:26)
--- NOTE | 2017-06-27 10:19 | Orthopedic Consultation ---
Orthopedic Consultation Date of Consultation: Jun 27, 2017. Attending Physician: Leticia Elizabeth M.D. Reason for Consultation: Back and bilateral leg pain left greater than right. History of Present Illness This is a 61-year-old female known to me from having undergone removal of a dorsal column stimulator approximately 1 year ago. She states over the past 6 months or so she has noted worsening back and bilateral leg pain. The parents are described as involving the buttocks groin extending down the thighs. It really extends below the knees. Prolonged standing and walking as well as sitting the car exacerbated her symptom complex. She would just continues to work full-time at [employer]. She lives alone. She has not had any recent lumbar injections. Past Medical/Surgical History Medical Problems: (1) Acute exacerbation of chronic low back pain Status: Acute (2) Chronic back pain Status: Acute (3) Inadequate pain control Status: Acute (4) STD exposure Status: Acute Family History FHx: heart disease FATHER MOTHER Social History Smoking Status: Current Every Day Smoker Alcohol Use: none Housing Status: lives with family Allergies Coded Allergies: Penicillin V (Verified Allergy, Severe, HIVES/SOB, 06/25/17) Sulfa Antibiotics (Verified Allergy, Mild, RASH, 06/25/17) Bupropion (Verified Allergy, Unknown, generalized swelling, 06/25/17) Cephalexin (Verified Allergy, Unknown, ? reaction, 06/25/17) Hydrocortisone (Verified Allergy, Unknown, pruritis, 06/25/17) with ear drops Ibuprofen (Verified Allergy, Unknown, edema, 06/25/17) Macrolides and Ketolides (Verified Allergy, Unknown, pruritis and rash, ) patient states she is allergic to "all -mycins" Methylprednisolone (Verified Allergy, Unknown, CHF, 06/25/17) Home Medications Scheduled Omeprazole (Prilosec), 20 MG PO DAILY Scheduled PRN Clonazepam (Klonopin), 2 MG PO BID PRN for Anxiety Furosemide (Lasix), 20 MG PO DAILY PRN for edema Current Inpatient Medications Current Inpatient Medications Medications (Trade) Dose Ordered Sig/Rolando Route Start Time Stop Time Status Last Admin Dose Admin Enoxaparin Sodium (Lovenox Inj) 40 mg Q24H SQ 06/25/17 21:00 07/25/17 20:59 06/25/17 22:05 40 MG Acetaminophen (Tylenol Tab) 650 mg Q4H PRN PO 06/25/17 17:30 07/25/17 17:29 06/26/17 12:31 650 MG Ondansetron HCl (Zofran Inj) 4 mg Q6H PRN IV 06/25/17 17:30 07/25/17 17:29 06/26/17 08:59 4 MG Clonazepam (Klonopin Tab) 2 mg BID PRN PO 06/25/17 17:45 07/25/17 17:44 06/26/17 20:31 2 MG Pantoprazole Sodium (Protonix Tab) 40 mg DAILY PO 06/26/17 09:00 07/26/17 08:59 06/27/17 09:26 40 MG Miscellaneous (Iv Fluids Completed) 1 ea PRN PRN N/A 06/25/17 21:45 06/25/18 21:44 Ketorolac Tromethamine (Toradol Inj) 30 mg Q6H PRN IV 06/26/17 10:30 07/01/17 10:29 06/26/17 20:31 30 MG Hydromorphone HCl (Dilaudid Inj) 0.5 mg Q6H PRN IV 06/26/17 10:30 07/10/17 10:29 Magnesium Oxide (Mag-Ox Tab) 400 mg QAM PO 06/27/17 09:00 07/27/17 08:59 06/27/17 09:26 400 MG Vitamin B Complex (Vitamin B Complex) 1 tab QAM PO 06/27/17 09:00 07/27/17 08:59 06/27/17 09:26 1 TAB Physical Exam Date Time Temp Pulse Resp B/P (MAP) Pulse Ox O2 Delivery O2 Flow Rate FiO2 06/27/17 07:12 36.7 114 19 118/75 (89) 96 Room Air 06/27/17 00:20 Room Air 06/26/17 23:18 36.7 78 16 112/74 (87) 98 Room Air 06/26/17 16:05 36.9 65 16 112/71 (85) 96 Room Air 06/26/17 15:40 Room Air On physical exam she is alert and oriented. She is uncomfortable and somewhat tearful. She exhibits plus 5 out of 5 bilateral plantar flexion dorsiflexion quadriceps. Sensory appears to be symmetric and intact. She does demonstrate a positive logroll on the left and negative on the right. However the logroll does create normally groin pain but also SI joint and back discomfort. Assessment & Plan Assessment bilateral leg pain. Plan at this time reviewing her MRI she does demonstrate evidence of adjacent level spinal stenosis facet hypertrophy and lateral recess disease most impressive at L3-4. This would be consistent with her pain patterns. She also has evidence of osteoarthritis affecting the left hip on x-ray. This point she expressed an interest to go home which is completely reasonable. I have arranged to see her this coming Thursday in my office at which point we will obtain further x-rays lumbar spine and begin a workup in coordination with interventional pain management.
--- NOTE | 2017-06-27 10:46 | Progress Note ---
Internal Med Progress Note Date of Service: Jun 27, 2017. Provider Documentation: SUBJECTIVE: The patient was seen and examined. She was admitted with one going pain in the left hip and groin and also left knee. Her left hip was injected at the end of April without much benefit. She has been worried about Dennison's cyst the left knee. Complaints of severe pain in left hip, groin and also left knee this morning. 06/27 Ambulating with some difficulty Wants to go home OBJECTIVE: Vital Signs-as noted below Exam: General-no apparent distress except pain as mentioned before Eyes-normal ENT-normal Neck-supple Lungs-clear to auscultate bilaterally Heart-regular, no murmur appreciated Abdomen-benign nontender no organomegaly Extremities-no edema Local exam of the left hip-tender greater trochanteric area Hip movement was painful in every direction. Has a very small Dennison's cyst on left side, no fluid in the left knee joint Neuro-alert awake oriented 3 No focal neuro deficit appreciated Lab data as noted below. ASSESSMENT & PLAN: LEFT HIP AND LEFT KNEE PAIN -Patient presenting with increasing left hip and left knee pain for the past few months, has been evaluated as an outpatient by orthopedics, had left knee MRI on 05/09/17 that showed a small to moderate sized Dennison's cyst, hip x-ray on showed osteoarthritis of both hips left greater than right -Lumbar spine MRI in the ED negative for acute findings -Has a lactate he arthritis with greater trochanteric bursitis -Has left knee arthritis with a small Dennison's cyst -Consult orthopedics-appreciate input -We will start intravenous Toradol, IV Dilaudid as needed, PT evaluation tomorrow. -If no improvement of her condition she may need intra-articular injection of steroid -No further intervention from Ortho at this time Spinal Stenosis Disc Protrusion -worse at L3/L4 Evaluated by Spinal Surgery OP follow up arranged ABNORMAL BRAIN MRI -Brain MRI questioning microvascular versus demyelination disease -Will have neurology evaluate the patient-appreciate input -We will prescribe magnesium and vitamin as advised by neurology -No focal sensory and/or motor deficit appreciated. ANXIETY -Continue as needed clonazepam DVT PROPHYLAXIS -SQ Lovenox DISPOSITION -The patient will be placed as observation status for now until further work up is complete. -Admitted and will be discharged today Vital Signs: Date Time Temp Pulse Resp B/P (MAP) Pulse Ox O2 Delivery O2 Flow Rate FiO2 06/27/17 07:12 36.7 114 19 118/75 (89) 96 Room Air 06/27/17 00:20 Room Air 06/26/17 23:18 36.7 78 16 112/74 (87) 98 Room Air 06/26/17 16:05 36.9 65 16 112/71 (85) 96 Room Air 06/26/17 15:40 Room Air
[2017-06-27] MEDS ORDERED: VITBC PO (10:48)
[2017-06-27] MEDS ORDERED: MGNO400 PO (10:48)
--- NOTE | 2017-06-27 10:52 | Discharge Instructions ---
Discharge Instructions Date of Service Jun 27, 2017. Admission Reason for Admission: Left Knee Pain Discharge Discharge Diagnosis / Problem: Back pain,Spinal Stenosis-L3/L4,Left Hip and Knee pain Discharge Goals Goal(s): Prevent Disease Progression Activity Recommendations Activity Limitations: resume your previous activity . Instructions / Follow-Up Instructions / Follow-Up Dr Samson on 07/03/17 at 10:45 AM.Pl keep appointment with Dr Hill Current Hospital Diet Patient's current hospital diet: Regular Diet Discharge Diet Recommended Diet: Regular Diet Pending Studies Studies pending at discharge: no Medical Emergencies . Who to Call and When: Medical Emergencies: If at any time you feel your situation is an emergency, please call 911 immediately. . Non-Emergent Contact Non-Emergency issues call your: Primary Care Provider . Past History Medical & Surgical History: (1) Dennison's cyst of knee (2) Left hip pain (3) Left knee pain (4) Dyslipidemia (5) Anxiety (6) Depression (7) H/O tubal ligation (8) S/P lumbar fusion (9) S/P rotator cuff repair . "Provider Documentation" section prepared by Leticia Elizabeth. .
[2017-06-27 10:54] VITALS: BP 118/75; PULSE 114; TEMP 36.7; O2SAT 96
--- NOTE | 2017-06-28 08:06 | Discharge Summary ---
Discharge Summary Date of Service Jun 28, 2017. Discharge Summary Admission Date: Jun 26, 2017 at 11:54 Discharge Date: Jun 27, 2017 Discharge Disposition: Home Principal Diagnosis: Back pain,Spinal Stenosis-L3/L4,Left Hip and Knee pain Secondary Diagnoses/Problems: Please see H&P and Hospital Progress note Consultations: Ortho and Spine Surgery Medication Reconciliation New Medications: Magnesium Oxide (Magnesium-Oxide) 400 Mg Tab 400 MG PO QAM for 30 Days, #30 TAB Vitamin B Complex (Vitamin B Complex) 1 Tab Tab 1 TAB PO QAM for 30 Days, #30 TAB Continued Medications: Clonazepam (Klonopin) 2 Mg Tab 2 MG PO BID PRN for Anxiety, TAB Furosemide (Lasix) 20 Mg Tab 20 MG PO DAILY PRN for edema, TAB NEEDED FOR FLUID ACCUMULATION OR WEIGHT GAIN. Omeprazole (Prilosec) 20 Mg Capcr 20 MG PO DAILY, CAP Admission Information HPI (per Admitting provider): 61-year-old female who presents to the ER with left hip and knee pain. Patient reports increasing hip and knee pain for the past few months. Patient has been evaluated as an outpatient with [facility] orthopedics. Patient had an x-ray of her hip in April that showed osteoarthritis. MRI of the left knee on 2017 showed a small to moderate sized Dennison's cyst. Patient was placed in a left knee brace however she reports no improvement in her symptoms with use of it. 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 She has pain in her low back that radiates around into the left hip and to the left groin and down the leg. She also has pain behind the left knee that she feels radiates up into the left hip as well. Pain is severe. She has had a persistent headache for the past several days. She feels it is due to the anxiety of the severe hip and knee pain. She denies chest pain or shortness of breath. No lightheadedness, dizziness, diaphoresis, or syncopal events. No abdominal pain, nausea, vomiting, or diarrhea. She denies fever and chills. No urinary symptoms. In the ED, patient had brain and lumbar spine MRIs and left lower extremity Doppler that are unremarkable. Labs are unremarkable. Vital signs are stable. Patient was given IV morphine, which she reports only relieved her pain for a few minutes. Past Medical/Surgical History Medical Problems: (1) Anxiety Status: Chronic (2) Depression Status: Chronic (3) Dyslipidemia Status: Chronic Surgical Problems: (1) H/O tubal ligation Status: Chronic (2) History of lumbar surgery Status: Resolved (3) S/P lumbar fusion Status: Chronic (4) S/P rotator cuff repair Status: Chronic Family History FHx: heart disease FATHER MOTHER Social History Smoking Status: Current Every Day Smoker Alcohol Use: none Immunizations History of Tetanus Vaccine?: Yes Tetanus Immunization Date: May 06, 2010 History of Pneumococcal: Yes Pneumococcal Date: May 06, 2010 Allergies Coded Allergies: Penicillin V (Verified Allergy, Severe, HIVES/SOB, 06/25/17) Sulfa Antibiotics (Verified Allergy, Mild, RASH, 06/25/17) Bupropion (Verified Allergy, Unknown, generalized swelling, 06/25/17) Cephalexin (Verified Allergy, Unknown, ? reaction, 06/25/17) Hydrocortisone (Verified Allergy, Unknown, pruritis, 06/25/17) with ear drops Ibuprofen (Verified Allergy, Unknown, edema, 06/25/17) Macrolides and Ketolides (Verified Allergy, Unknown, pruritis and rash, ) patient states she is allergic to "all -mycins" Methylprednisolone (Verified Allergy, Unknown, CHF, 06/25/17) Home Medications Scheduled Omeprazole (Prilosec), 20 MG PO DAILY Scheduled PRN Clonazepam (Klonopin), 2 MG PO BID PRN for Anxiety Furosemide (Lasix), 20 MG PO DAILY PRN for edema Review of Systems ROS per HPI, all other systems reviewed and negative Physical Exam H&P v2 Physical Exam Vital Signs Date Time Temp Pulse Resp B/P (MAP) Pulse Ox O2 Delivery O2 Flow Rate FiO2 06/25/17 18:16 62 20 113/60 95 Room Air 06/25/17 17:29 64 20 109/65 97 Room Air 06/25/17 15:57 68 18 133/80 96 Room Air 06/25/17 14:36 68 20 134/62 99 Room Air 06/25/17 11:53 36.7 87 20 156/83 98 Room Air General Appearance: WD/WN, no apparent distress Head: normocephalic, atraumatic Eyes: normal inspection, EOMI, sclerae normal ENT: hearing grossly normal, + pertinent finding (Mucous membranes moist) Neck: supple, no JVD, trachea midline Respiratory/Chest: lungs clear, normal breath sounds, no respiratory distress Cardiovascular: regular rate, rhythm, no edema, normal peripheral pulses Abdomen/GI: normal bowel sounds, non tender, soft, no organomegaly Extremities/Musculoskelatal: no calf tenderness, normal capillary refill, + pertinent finding (Pain with palpation over the left hip and into the left groin , pain with palpation of the left posterior knee) Neurologic/Psych: no motor/sensory deficits, alert, normal mood/affect, oriented x 3 Skin: normal color, warm/dry Diagnostics H&P v2 Diagnostics Laboratory Results Results Past 24 Hours Test 06/25/17 12:37 06/25/17 14:40 Range/Units White Blood Count 5.87 4.8-10.8 K/uL Red Blood Count 4.65 4.2-5.4 M/uL Hemoglobin 14.8 12.0-16.0 g/dL Hematocrit 41.5 37-47 % Mean Corpuscular Volume 89.2 80-100 fL Mean Corpuscular Hemoglobin 31.8 25-34 pg Mean Corpuscular Hemoglobin Concent 35.7 32-36 g/dl Platelet Count 234 130-400 K/uL Mean Platelet Volume 9.6 7.4-10.4 fL Neutrophils (%) (Auto) 56.0 % Lymphocytes (%) (Auto) 35.6 % Monocytes (%) (Auto) 7.3 % Eosinophils (%) (Auto) 0.7 % Basophils (%) (Auto) 0.2 % Neutrophils # (Auto) 3.29 1.4-6.5 K/uL Lymphocytes # (Auto) 2.09 1.2-3.4 K/uL Monocytes # (Auto) 0.43 0.11-0.59 K/uL Eosinophils # (Auto) 0.04 0-0.5 K/uL Basophils # (Auto) 0.01 0-0.2 K/uL RDW Standard Deviation 38.9 36.4-46.3 fL RDW Coefficient of Variation 12.1 11.5-14.5 % Immature Granulocyte % (Auto) 0.2 % Immature Granulocyte # (Auto) 0.01 0.00-0.02 K/uL Sodium Level 137 136-145 mmol/L Potassium Level 4.0 3.5-5.1 mmol/L Chloride Level 106 98-107 mmol/L Carbon Dioxide Level 27 21-32 mmol/L Anion Gap 4.0 3-11 mmol/L Blood Urea Nitrogen 15 7-18 mg/dl Creatinine 0.98 0.60-1.20 mg/dl Est Creatinine Clear Calc Drug Dose 63.9 ml/min Estimated GFR () 72.2 Estimated GFR (Non- 62.3 BUN/Creatinine Ratio 15.4 10-20 Random Glucose 92 70-99 mg/dl Calcium Level 9.4 8.5-10.1 mg/dl Total Bilirubin 0.4 0.2-1 mg/dl Direct Bilirubin < 0.1 0-0.2 mg/dl Aspartate Amino Transf (AST/SGOT) 13 15-37 U/L Alanine Aminotransferase (ALT/SGPT) 17 12-78 U/L Alkaline Phosphatase 63 45-117 U/L Total Protein 8.1 6.4-8.2 gm/dl Albumin 4.1 3.4-5.0 gm/dl Lipase 104 73-393 U/L Lyme Disease IgG Antibody NEG NEG Lyme Disease IgM Antibody NEG NEG Urine Color YELLOW Urine Appearance CLEAR CLEAR Urine pH 6.5 4.5-7.5 Urine Specific [place] 1.006 1.000-1.030 Urine Protein NEG NEG Urine Glucose (UA) NEG NEG Urine Ketones NEG NEG Urine Occult Blood NEG NEG Urine Nitrite NEG NEG Urine Bilirubin NEG NEG Urine Urobilinogen NEG NEG Urine Leukocyte Esterase NEG NEG Diagnostic Radiology LUMBAR SPINE MRI IMPRESSION: 1. Postsurgical changes of L4-S1 posterior fusion with L4-5 laminectomies. Adequate posterior decompression. 2. Degenerative change at L2-3 and L3-4 results in neural foraminal narrowing most severe on the right at L3-4 with abutment of the exiting right L3 nerve root. 3. No evidence of cauda equina impingement or significant spinal canal stenosis. LEFT LOWER EXTREMITY DOPPLER IMPRESSION: No DVT within the left lower extremity. BRAIN MRI IMPRESSION: 1. No acute intracranial abnormality. 2. Scattered foci of T2 hyperintensity seen within the periventricular and subcortical white matter are nonspecific but favor microvascular ischemic change. Migraines or less likely a demyelinating disease or Lyme's disease could also have a similar appearance. Impression H&P v2 Impression Assessment and Plan LEFT HIP AND LEFT KNEE PAIN -Admit to [facility] -Patient presenting with increasing left hip and left knee pain for the past few months, has been evaluated as an outpatient by orthopedics, had left knee MRI on 05/09/17 that showed a small to moderate sized Dennison's cyst, hip x-ray on showed osteoarthritis of both hips left greater than right -Lumbar spine MRI in the ED negative for acute findings -Will check hip x-ray -[facility] radiology did send images for orthopedics to review -Consult orthopedics ABNORMAL BRAIN MRI -Brain MRI questioning microvascular versus demyelination disease -Will have neurology evaluate the patient ANXIETY -Continue as needed clonazepam DVT PROPHYLAXIS -SQ Lovenox DISPOSITION -The patient will be placed as observation status for now until further work up is complete. Physical Exam (per Admitting): General Appearance: WD/WN, no apparent distress Head: normocephalic, atraumatic Eyes: normal inspection, EOMI, sclerae normal ENT: hearing grossly normal, + pertinent finding (Mucous membranes moist) Neck: supple, no JVD, trachea midline Respiratory/Chest: lungs clear, normal breath sounds, no respiratory distress Cardiovascular: regular rate, rhythm, no edema, normal peripheral pulses Abdomen/GI: normal bowel sounds, non tender, soft, no organomegaly Extremities/Musculoskelatal: no calf tenderness, normal capillary refill, + pertinent finding (Pain with palpation over the left hip and into the left groin , pain with palpation of the left posterior knee) Neurologic/Psych: no motor/sensory deficits, alert, normal mood/affect, oriented x 3 Skin: normal color, warm/dry Hospital Course LEFT HIP AND LEFT KNEE PAIN -Patient presenting with increasing left hip and left knee pain for the past few months, has been evaluated as an outpatient by orthopedics, had left knee MRI on 05/09/17 that showed a small to moderate sized Dennison's cyst, hip x-ray on showed osteoarthritis of both hips left greater than right -Lumbar spine MRI in the ED negative for acute findings -Has a lactate he arthritis with greater trochanteric bursitis -Has left knee arthritis with a small Dennison's cyst -Consult orthopedics-appreciate input -We will start intravenous Toradol, IV Dilaudid as needed, PT evaluation tomorrow. -If no improvement of her condition she may need intra-articular injection of steroid -No further intervention from Ortho at this time Spinal Stenosis Disc Protrusion -worse at L3/L4 Evaluated by Spinal Surgery OP follow up arranged ABNORMAL BRAIN MRI -Brain MRI questioning microvascular versus demyelination disease -Will have neurology evaluate the patient-appreciate input -We will prescribe magnesium and vitamin as advised by neurology -No focal sensory and/or motor deficit appreciated. ANXIETY -Continue as needed clonazepam DVT PROPHYLAXIS -SQ Lovenox DISPOSITION -The patient will be placed as observation status for now until further work up is complete. -Admitted and will be discharged today Total time spent on discharge = 35 minutes This includes examination of the patient, discharge planning, medication reconciliation, and communication with other providers. Discharge Instructions Date of Service Jun 27, 2017. Admission Reason for Admission: Left Knee Pain Discharge Discharge Diagnosis / Problem: Back pain,Spinal Stenosis-L3/L4,Left Hip and Knee pain Discharge Goals Goal(s): Prevent Disease Progression Activity Recommendations Activity Limitations: resume your previous activity . Instructions / Follow-Up Instructions / Follow-Up Dr Samson on 07/03/17 at 10:45 AM.Pl keep appointment with Dr Hill Current Hospital Diet Patient's current hospital diet: Regular Diet Discharge Diet Recommended Diet: Regular Diet Pending Studies Studies pending at discharge: no Medical Emergencies . Who to Call and When: Medical Emergencies: If at any time you feel your situation is an emergency, please call 911 immediately. . Non-Emergent Contact Non-Emergency issues call your: Primary Care Provider . Past History Medical & Surgical History: (1) Dennison's cyst of knee (2) Left hip pain (3) Left knee pain (4) Dyslipidemia (5) Anxiety (6) Depression (7) H/O tubal ligation (8) S/P lumbar fusion (9) S/P rotator cuff repair . "Provider Documentation" section prepared by Leticia Elizabeth. . <Electronically signed by Leticia Elizabeth M.D.> Signed: 06/27/17 0495 Additional Copies To Deonna Samson M.D. (MEDICAL)
== END 2017-06-27 11:13 | disposition home or self-care (01) | DRG 554 ==
LOC: C.EDB 11:36 → C.MSW 17:42 → ENRESERV 17:51 → OBSVTOIN 06-26 11:54
PROVIDERS: ADMIT Hospitalist; ATTEND Internal Medicine
DX: M16.0 Bilateral primary osteoarthritis of hip (principal); M48.061 Spinal stenosis, lumbar region without neurogenic claudication; F41.9 Anxiety disorder, unspecified; M25.562 Pain in left knee; M71.22 Synovial cyst of popliteal space [Baker], left knee; F32.9 Major depressive disorder, single episode, unspecified; E78.5 Hyperlipidemia, unspecified; F17.200 Nicotine dependence, unspecified, uncomplicated; R94.02 Abnormal brain scan; G89.29 Other chronic pain; Z98.51 Tubal ligation status; Z88.2 Allergy status to sulfonamides; Z88.6 Allergy status to analgesic agent; Z88.8 Allergy status to other drugs, medicaments and biological substances; Z88.0 Allergy status to penicillin; Z84.1 Family history of disorders of kidney and ureter; Z82.49 Family history of ischemic heart disease and other diseases of the circulatory system

== ENCOUNTER 2017-07-24 07:42 | Inpatient (IN) | payer OTHER ==
[2017-07-15 11:33] VITALS: Ht 160 cm; Wt 89.2 kg
--- NOTE | 2017-07-15 12:30 | PAT Medication Instructions ---
Service Date Jul 15, 2017. Current Home Medication List Clonazepam (Klonopin), 2 MG PO TID PRN for Anxiety Furosemide (Lasix), 20 MG PO DAILY PRN for edema Hydrocodon/Acetaminophen 5MG/300MG (Vicodin (5MG/300MG)), 1-2 TAB PO UD PRN for Pain Omeprazole (Prilosec), 20 MG PO UD PRN for HEARTBURN Medication Instructions For Your Scheduled Surgery - Hold the following medications the morning of surgery: Furosemide (Lasix), 20 MG PO DAILY PRN for edema - Take the following medications the morning of surgery with a sip of water: Clonazepam (Klonopin), 2 MG PO TID PRN for Anxiety (if needed) Hydrocodon/Acetaminophen 5MG/300MG (Vicodin (5MG/300MG)), 1-2 TAB PO UD PRN for Pain (if needed, can be taken up to four hours before surgery) Omeprazole (Prilosec), 20 MG PO UD PRN for HEARTBURN (if needed) - Take the following medications as scheduled the night before surgery: Clonazepam (Klonopin), 2 MG PO TID PRN for Anxiety (if needed) Hydrocodon/Acetaminophen 5MG/300MG (Vicodin (5MG/300MG)), 1-2 TAB PO UD PRN for Pain (if needed) Omeprazole (Prilosec), 20 MG PO UD PRN for HEARTBURN (if needed) If you have any questions please call us at [phone] or [phone] or [phone]
[2017-07-15 12:57] LABS: BASO % 0.3 %; BASO ABS # 0.02 K/uL (0-0.2); EOS % 1.1 %; EOS ABS # 0.08 K/uL (0-0.5); HEMATOCRIT 40.6 % (37-47); HEMOGLOBIN 14.3 g/dL (12.0-16.0); IG# 0.01 K/uL (0.00-0.02); LYMPH % 37.2 %; LYMPH ABS # 2.79 K/uL (1.2-3.4); MEAN CELL VOLUME 89.4 fL (80-100); MEAN CORPUSCULAR HEMOGLOBIN 31.5 pg (25-34); MEAN CORPUSCULAR HGB CONC 35.2 g/dl (32-36); MEAN PLATELET VOLUME 9.6 fL (7.4-10.4); MONO % 7.2 %; MONO ABS # 0.54 K/uL (0.11-0.59); NEUT % 54.1 %; NEUT ABS # 4.06 K/uL (1.4-6.5); PLATELET COUNT 243 K/uL (130-400); RED CELL DISTRIBUTION WIDTH CV 12.4 % (11.5-14.5); RED CELL DISTRIBUTION WIDTH SD 40.3 fL (36.4-46.3)
[2017-07-23 23:50] VITALS: BP 89/54; PULSE 54; TEMP 36.4; O2SAT 98
[~2017-07-24] VITALS: Ht 160 cm; Wt 89.2 kg
[~2017-07-24 07:42] MED LIST changes: +ACETAMINOPHEN 500 MG TAB PO SCH; +ATROPINE SULFATE 0.1 MG/ML 5ML SYR IV PRN; +CLINDAMYCIN 600 MG/54 ML D5W 54 ML IV SCH; +CeleBREX 200 MG CAP PO SCH; -DOCU-94 PO; -DRGTP50 TD; +EpHEDrine SULFATE INJ 50 MG/ML AMP IV PRN; +GABAPENTIN 600 MG PO SCH; +HYDR-3419 PO; +HYDROmorphone INJ 0.5 MG/0.5 ML SYR IV PRN; +LACTATED RINGER'S 1000ML 1,000 ML IV SCH; +ONDANSETRON INJ 2 MG/ML 2 ML VIAL IV PRN
[2017-07-24] MEDS ORDERED: CIPR1TAB11 PO (08:25)
[2017-07-24 08:58] VITALS: BP 106/62; PULSE 67; TEMP 37.1; O2SAT 98
[2017-07-24] MEDS ORDERED: MIDAZOLAM HCL 1 MG/ML 2ML VIAL ONE (10:49)
[2017-07-24] MEDS ORDERED: FENTANYL CITRATE INJ 50 MCG/1 ML 2 ML VIAL ONE ×4 (10:49→14:05)
--- NOTE | 2017-07-24 10:55 | History & Physical Bridge Note ---
H&P Re-Evaluation Bridge Note: I have examined the patient, reviewed the History & Physical and in the interval since the performance of the History & Physical I have noted the following changes of clinical significance: No changes noted
--- NOTE | 2017-07-24 10:56 | History and Physical ---
History & Physical Date Jul 24, 2017. Chief Complaint Back and leg pain History of Present Illness The patient is a 61 year old female with complaints of back and leg pain Past Medical/Surgical History Medical Problems: (1) Anxiety (2) Dennison's cyst of knee (3) Depression (4) Dyslipidemia (5) Left hip pain (6) Left knee pain Surgical Problems: (1) H/O tubal ligation (2) History of lumbar surgery (3) S/P lumbar fusion (4) S/P rotator cuff repair Additional History Hepatic Disease: No Endocrine Disorder: No Kidney Disease: No Hypertension: No Heart Disease: No Bleeding Tendencies: No Infectious Diseases: No Allergies Coded Allergies: Penicillin V (Verified Allergy, Severe, HIVES/SOB, 07/24/17) Bupropion (Verified Allergy, Intermediate, generalized swelling, 07/24/17) Ibuprofen (Verified Allergy, Intermediate, edema, 07/24/17) Macrolides and Ketolides (Verified Allergy, Intermediate, pruritis, hives and rash, 07/24/17) patient states she is allergic to "all -mycins" Sulfa Antibiotics (Verified Allergy, Intermediate, RASH/HIVES, 07/24/17) Cephalexin (Verified Allergy, Unknown, ? reaction, 07/24/17) Methylprednisolone (Verified Adverse Reaction, Intermediate, CHF, 07/21/17) Hydrocortisone (Verified Adverse Reaction, Mild, pruritis, 07/21/17) with ear drops Home Medications Scheduled Ciprofloxacin Tab (Cipro), 1 TAB PO BID Scheduled PRN Clonazepam (Klonopin), 2 MG PO TID PRN for Anxiety Furosemide (Lasix), 20 MG PO DAILY PRN for edema Hydrocodon/Acetaminophen 5MG/300MG (Vicodin (5MG/300MG)), 1-2 TAB PO UD PRN for Pain Omeprazole (Prilosec), 20 MG PO UD PRN for HEARTBURN Physical Examination Skin: warm/dry, no rash Eyes: normal inspection, EOMI, sclerae normal ENT: normal ENT inspection, pharynx normal Head: normocephalic, atraumatic Neck: supple, no adenopathy, trachea midline Respiratory/Chest: lungs clear, normal breath sounds, no respiratory distress Cardiovascular: regular rate, rhythm, no edema, no murmur Abdomen / GI: normal bowel sounds, non tender Back: normal inspection Extremities: normal inspection, normal range of motion Neurologic/Psych: no motor/sensory deficits, alert, normal reflexes, oriented x 3 Diagnosis Lumbar spinal stenosis with neurogenic claudication Plan of Treatment Removal of hardware L4-S1 decompression and fusion L2-L4
[2017-07-24] MEDS ORDERED: BACITRACIN 50000 UNIT VIAL ONE (11:22)
[2017-07-24] MEDS ORDERED: BUPIVACAINE/EPINEPHRINE 0.5% MPF 1:200,000 30 ML VIAL ONE (11:22)
[2017-07-24] MEDS ORDERED: HYDROmorphone INJ 2 MG/ML SYR/VIAL ONE ×3 (11:58→13:48)
[2017-07-24] MEDS ORDERED: FLOSEAL HEMOSTATIC MATRIX 10ML TOP ONE (13:27)
--- NOTE | 2017-07-24 13:38 | [facility] Operative Report ---
Operative Report Operative Date Jul 24, 2017. Pre-Operative Diagnosis Lumbar spinal stenosis with neurogenic claudication Post-Operative Diagnosis Same Procedure(s) Performed 1. Removal of posterior instrumentation L4-5 L5-S1. #2 expiration fusion L4-5 L5-S1. #3 lumbar decompression medial facetectomies foraminotomies L2-3 L3-4. #4 posterior spinal fusion L2-3 L3-4. #5 placement posterior segmental instrumentation L2-3 L3-4. #6 interbody fusion L3-4. #7 placement peek cage 13 x 26 mm at L3-4. #8 placement of locally harvested morselized autograft in the posterior lateral gutters. #9 placement InFUSE collagen sponge combined with master graft in the posterior lateral gutters and ostial amp in the interbody space. Surgeon Dr. Hill Regulator Pin Inserter Surgeon(s) Román Vela PA-C Estimated Blood Loss 300 Findings Severe spinal stenosis Specimens A) Removed Hardware Description of Procedure Patient was met with preoperatively case discussed all questions addressed. After informed consent obtained patient was taken to the operative suite underwent intubation and placed in a prone position the Sajan table on top of the Clay frame. All bony prominences well-padded eyes inspected to ensure no external pressure placed upon. This point the lumbar spine was prepped and draped in normal sterile fashion. Sharp dissection with the assistance of Bovie cautery was performed down to and exposing the lamina and transverse processes of L2-L3 in the instrumentation L4-L5 and sacral ala bilaterally. Then proceeded remove the hardware at L4 L5-S1 levels bilaterally explain the fusion mass noted to be intact. Then performed a complete laminectomy of L3 and L2 addressing severe lateral recess and foraminal disease. Pedicle screws were then placed in L2-L3-L4 and appropriate size bubba placed. Through a transforaminal approach and left complete discectomy was performed endplates created to subcortical bleeding bone and a 13 x 26 mm peek cage filled with ostial amp bone graft tapped in position. The rods were then locked in final position. Transverse processes of L2-L3-L4 burred to subcortical bleeding bone. Infuse collagen sponge mass graft and locally harvested morselized autograft was placed in the posterior lateral gutters. A 15 round LEONIE drain was inserted. Incision was closed with 1 Vicryl fascia 2-0 Vicryl subcutaneously and 4-0 Monocryl for fashion closure Steri-Strips sterile dressings placed. Patient will continue PACU stable condition. Please note Israel Vela was present throughout the entire procedure involved the patient positioning complex portions of the surgery and fashion closure. I attest to the content of the Intraoperative Record and any orders documented therein. Any exceptions are noted below.
[2017-07-24] MEDS ORDERED: SODIUM CHLORIDE 0.9% 1000ML 1,000 ML IV SCH (13:39)
--- NOTE | 2017-07-24 13:42 | DIAGNOSTIC IMAGING REPORT ---
LUMBAR SPINE, INTRAOPERATIVE FLUOROSCOPY HISTORY: L4-S1 hardware removal. L2-L4 decompression and fusion. FLUOROSCOPY TIME: 20 seconds. FINDINGS: Intraoperative fluoroscopy was provided for the lumbar spine. 3 fluoroscopic spot images were obtained. Posterior decompression and fusion from L2 through L4 with pedicle screws and rods. The hardware appears intact. There or intervertebral cages at L4-L5 and L5-S1. IMPRESSION: Fluoroscopy provided for a L2-L4 posterior decompression and fusion. Electronically signed by: Antonio Lew M.D. 07/24/2017 1:41 PM Dictated Date/Time: 07/24/2017 1:39 PM
[2017-07-24] MEDS ORDERED: DO NOT ADMINISTER PNEUMOCOCCAL VACCINE PRN (13:45)
[2017-07-24] MEDS ORDERED: ALUMINUM/MAGNESIUM SUSP 30 ML UDC PO PRN (13:45)
[2017-07-24] MEDS ORDERED: NALOXONE HCL 0.4 MG/1 ML VIAL/CARP IV PRN ×2 (13:45)
[2017-07-24] MEDS ORDERED: FAMOTIDINE 20 MG TAB PO PRN (13:45)
[2017-07-24] MEDS ORDERED: hydrOXYzine HCL 25 MG TAB PO PRN (13:45)
[2017-07-24] MEDS ORDERED: PANTOprazole SOD 40 MG TAB PO PRN (13:45)
[2017-07-24] MEDS ORDERED: PROMETHAZINE HCL INJ 12.5 MG in SODIUM CHLORIDE 0.9% 50ML 50 ML IV PRN (13:45)
[2017-07-24] MEDS ORDERED: FUROSEMIDE 20 MG TAB PO PRN (13:45)
[2017-07-24] MEDS ORDERED: DO NOT ADMINISTER FLU VACCINE PRN (13:45)
[2017-07-24] MEDS ORDERED: ONDANSETRON INJ 2 MG/ML 2 ML VIAL IV PRN (13:45)
[2017-07-24] MEDS ORDERED: LORAZEPAM 0.5 MG TAB PO PRN (13:45)
[2017-07-24] MEDS ORDERED: SOD PHOSPHATE/SOD BIPHOSPHATE ENEMA 132 ML BTL PR PRN (13:45)
[2017-07-24] MEDS ORDERED: METOCLOPRAMIDE HCL INJ 5 MG/ML 2 ML VIAL IV PRN (13:45)
[2017-07-24] MEDS ORDERED: MAGNESIUM HYDROXIDE SUSP 30 ML UDC PO PRN (13:45)
[2017-07-24] MEDS ORDERED: HYDROmorphone HCL 0.5MG/ML 50 ML CASSETTE IV PRN (13:45)
[2017-07-24] MEDS ORDERED: LORAZEPAM INJ 0.5 MG in SYRINGE 0.75 ML IV PRN (13:45)
[2017-07-24] MEDS ORDERED: BISACODYL 10 MG SUPP PR PRN (13:45)
[2017-07-24] MEDS ORDERED: GLYCOPYRROLATE INJ 0.2 MG/ML VIAL ONE (13:48)
[2017-07-24] MEDS ORDERED: EpHEDrine SULFATE 50MG/5ML SYR ONE (13:48)
[2017-07-24] MEDS ORDERED: LIDOCAINE HCL 2% 2 ML VIAL (20MG/ML) ONE (13:48)
[2017-07-24] MEDS ORDERED: KETOROLAC TROMETHAMINE 30 MG/ML VIAL ONE (13:48)
[2017-07-24] MEDS ORDERED: ONDANSETRON INJ 2 MG/ML 2 ML VIAL ONE (13:48)
[2017-07-24] MEDS ORDERED: DEXAMETHASONE SOD INJ 4 MG/ML VIAL ONE (13:48)
[2017-07-24] MEDS ORDERED: PROPOFOL IV EMULSION 10 MG/ML 20 ML VIAL IV ONE (13:48)
[2017-07-24] MEDS ORDERED: ROCURONIUM BROMIDE 10 MG/ML 5 ML VIAL IV ONE (13:48)
[2017-07-24] MEDS ORDERED: NEOSTIGMINE METHYLSULFATE 1 MG/ML 10ML VIAL ONE (13:48)
[2017-07-24] MEDS ORDERED: HYDROmorphone HCL 0.5MG/ML 50 ML CASSETTE ONE (14:04)
[2017-07-24] MEDS ORDERED: HYDROmorphone INJ 0.5 MG/0.5 ML SYR ONE (14:06)
[2017-07-24] MEDS: FENTANYL CITRATE INJ 50 MCG/1 ML 2 ML VIAL IV PRN ×4 (14:07→14:22)
--- NOTE | 2017-07-24 15:27 | Anesthesiology Progress Note ---
Anesthesia Post Op Note Date & Time Jul 24, 2017 at 15:27 Vital Signs Pain Intensity: 5 Vital Signs Past 12 Hours Date Time Temp Pulse Resp B/P (MAP) Pulse Ox O2 Delivery O2 Flow Rate FiO2 07/24/17 15:15 50 14 97/54 98 Nasal Cannula 4 07/24/17 15:00 36.2 59 23 111/66 99 Nasal Cannula 4 07/24/17 14:50 56 12 103/61 100 Nasal Cannula 4 07/24/17 14:40 36.2 72 18 112/68 100 Nasal Cannula 4 07/24/17 14:30 71 20 119/69 99 Nasal Cannula 4 07/24/17 14:20 73 20 121/72 100 Oxymask 10 07/24/17 14:10 80 21 119/67 100 Oxymask 10 07/24/17 14:00 36.2 84 16 121/69 96 Oxymask 10 07/24/17 08:58 37.1 67 18 106/62 98 Room Air Notes Mental Status: alert / awake / arousable, participated in evaluation Pt Amnestic to Procedure: Yes Nausea / Vomiting: adequately controlled Pain: adequately controlled Airway Patency, RR, SpO2: stable & adequate BP & HR: stable & adequate Hydration State: stable & adequate Anesthetic Complications: no major complications apparent
[2017-07-24] MEDS ORDERED: ACETAMINOPHEN 500 MG TAB PO PRN (16:00)
[2017-07-24] MEDS ORDERED: ACETAMINOPHEN IV 100 ML IV PRN (16:00)
[2017-07-24 16:05] VITALS: BP 103/67; PULSE 53; TEMP 36.4
[2017-07-24 16:36] VITALS: BP 104/68; PULSE 58; TEMP 36.4; O2SAT 99
[2017-07-24 17:05] VITALS: BP 101/60; PULSE 59; TEMP 36.4; O2SAT 100
[2017-07-24 18:09] VITALS: BP 96/62; PULSE 83; TEMP 36.4; O2SAT 100
[2017-07-24] MEDS: SODIUM CHLORIDE 0.9% 1000ML 1,000 ML IV SCH (18:27)
[2017-07-24] MEDS: CLONAZEPAM 1 MG TAB PO PRN (18:48)
[2017-07-24 19:12] VITALS: BP 99/63; PULSE 78; TEMP 36.5; O2SAT 98
[2017-07-24] MEDS ORDERED: NURSING VERBAL MED ORDER ONE (19:45)
[2017-07-24] MEDS: DOCUSATE SODIUM/SENNA 50/8.6MG TAB PO SCH (20:06)
[2017-07-24] MEDS: CLINDAMYCIN IV 600 MG in DEXTROSE 5% 50ML 50 ML IV SCH (20:06)
[2017-07-25] VITALS (8 sets, daily range): BP systolic 93–103; BP diastolic 55–66; PULSE 61–83; TEMP 36.7–37.1; O2SAT 96–99
[2017-07-25] MEDS: SODIUM CHLORIDE 0.9% 1000ML 1,000 ML IV SCH (01:00)
[2017-07-25] MEDS: CLINDAMYCIN IV 600 MG in DEXTROSE 5% 50ML 50 ML IV SCH (04:44)
[2017-07-25] MEDS ORDERED: NURSING VERBAL MED ORDER ONE (05:15)
[2017-07-25] MEDS ORDERED: DC PCA SCH (06:00)
[2017-07-25] MEDS ORDERED: HYDROmorphone INJ 0.5 MG/0.5 ML SYR IV PRN (06:00)
[2017-07-25 06:34] LABS: HEMATOCRIT 30.4 % (37-47); HEMOGLOBIN 10.2 g/dL (12.0-16.0); IG# 0.02 K/uL (0.00-0.02); LYMPH % 14.1 %; LYMPH ABS # 1.09 K/uL (1.2-3.4); MEAN CELL VOLUME 91.6 fL (80-100); MEAN CORPUSCULAR HEMOGLOBIN 30.7 pg (25-34); MEAN CORPUSCULAR HGB CONC 33.6 g/dl (32-36); MEAN PLATELET VOLUME 9.4 fL (7.4-10.4); MONO % 7.5 %; MONO ABS # 0.58 K/uL (0.11-0.59); NEUT % 78.1 %; NEUT ABS # 6.02 K/uL (1.4-6.5); PLATELET COUNT 180 K/uL (130-400); RED CELL DISTRIBUTION WIDTH CV 12.4 % (11.5-14.5); RED CELL DISTRIBUTION WIDTH SD 41.8 fL (36.4-46.3); WHITE BLOOD COUNT 7.71 K/uL (4.8-10.8)
[2017-07-25] MEDS: OXYCODONE HCL IR 5 MG TAB (IMMEDIATE RELEASE) PO PRN ×2 (06:42→21:17)
[2017-07-25 07:01] LABS: CREATININE 0.99 mg/dl (0.60-1.20); POTASSIUM 4.2 mmol/L (3.5-5.1)
--- NOTE | 2017-07-25 09:01 | Anesthesiology Progress Note ---
Anesthesia Post Op Note Date & Time Jul 25, 2017 at 09:00 Vital Signs Pain Intensity: 2.0 Vital Signs Past 12 Hours Date Time Temp Pulse Resp B/P (MAP) Pulse Ox O2 Delivery O2 Flow Rate FiO2 07/25/17 07:50 Room Air 07/25/17 07:28 36.9 61 18 94/61 (72) 97 Room Air 07/25/17 03:29 36.7 76 16 97 Room Air 07/25/17 03:26 94/55 (68) 07/25/17 00:00 98/60 (73) 07/25/17 00:00 Nasal Cannula 4.0 Notes Mental Status: alert / awake / arousable, participated in evaluation Pt Amnestic to Procedure: Yes Nausea / Vomiting: adequately controlled Pain: adequately controlled Airway Patency, RR, SpO2: stable & adequate BP & HR: stable & adequate Hydration State: stable & adequate Anesthetic Complications: no major complications apparent
--- NOTE | 2017-07-25 10:21 | Progress Note ---
Progress Note Date of Service Jul 25, 2017. Progress Note Patient's back pain is controlled. Leg symptoms are improved. Vital signs are stable. On exam she is good strength testing appears comfortable assessment status post lumbar decompression fusion. Plan this time will initiate physical therapy throughout the weekend. Advance her bowel regiment. Anticipate discharge to rehab on Thursday.
[2017-07-25] MEDS: KETOROLAC TROMETHAMINE 30 MG/ML VIAL IV PRN ×2 (11:23→18:57)
[2017-07-25] MEDS: CLONAZEPAM 1 MG TAB PO PRN (21:17)
[2017-07-25] MEDS: DOCUSATE SODIUM/SENNA 50/8.6MG TAB PO SCH (21:27)
[2017-07-26] MEDS: POLYETHYLENE (MIRALAX) 17 GM PACK PO SCH ×2 (05:32→11:56)
[2017-07-26 06:27] VITALS: BP 141/63; PULSE 82; TEMP 37.1; O2SAT 98
[2017-07-26] MEDS: KETOROLAC TROMETHAMINE 30 MG/ML VIAL IV PRN ×3 (09:34→23:44)
--- NOTE | 2017-07-26 10:01 | Progress Note ---
Progress Note Date of Service Jul 26, 2017. Progress Note Patient's back pain is controlled. She has some numbness to left anterior tibia. There is no motor deficits or pain. She is ambulating the halls with a walker. Assessment status post lumbar decompression fusion. Plan at this time will anticipate discharge to rehab Thursday.
[2017-07-26] MEDS ORDERED: RXC5 PO (10:08)
--- NOTE | 2017-07-26 10:09 | Discharge Instructions ---
Discharge Instructions Date of Service Jul 26, 2017. Admission Reason for Admission: Lumbar Spinal Stenosis Discharge Discharge Diagnosis / Problem: lumbar stenosis Discharge Goals Goal(s): Improve function Activity Recommendations Activity Limitations: per Instructions/Follow-up section . Instructions / Follow-Up Instructions / Follow-Up ACTIVITY RECOMMENDATIONS: SELF CARE INSTRUCTIONS AFTER THORACIC/LUMBAR FUSIONS 1. You may walk to your tolerance. It is good exercise for your legs and back. Expect some back and intermittent leg aches and pains. 2. You may perform "counter-top" level activities (make a sandwich, orin with a project, etc.). 3. No bending or lifting of more than 10 pounds or back twisting of any nature (roll like a log when turning in bed). 4. You may ride in a car for 20-30 minutes at a time. No driving until after your first visit with your doctor. 5. Frequent changes of position and restricting sitting to 30 minutes at a time will help limit the amount of back spasms and stiffness you may experience. 6. You may discontinue the use of ambulatory aids (cane, crutches, etc.) once your strength and confidence allow. 7. You may dobby loom chain pegger the shower and let water strike your incision when you arrive home at least once daily. Do not take a tub bath, sit in a hot tub or go into a swimming pool until after your first recheck in the office. SPECIAL CARE INSTRUCTIONS: VERY IMPORTANT TO READ AND REVIEW A. Your surgical incision has been closed with a cosmetic suture under the skin that will dissolve in about 6 weeks. In 14 days, you can use a pair of clean scissors and cut the suture that is left outside of the skin at the ends of your incision. 1. The small skin tapes can be removed 7 days after surgery if they have not fallen off by that point. 2. You may keep the wound open to air as much as possible to promote healing after post-op day number 5 unless told otherwise by your doctor. 3. If you think the wound looks like it is becoming infected (redness or worsening drainage) and/or you are experiencing fever, chill or worsening back pain and muscle spasms, contact the office so that we may evaluate you as soon as possible. B. Complications are uncommon, but please contact us if you have any signs or symptoms of: 1. wound infection (fever higher than 102.5 degrees F, redness, separation of wound, drainage, or increasing pain from the incision) 2. blood clots in legs (pain, swelling, redness and warmth in legs) 3. urinary tract infection (fever higher than 102.5 degrees F, burning upon urination or increased frequency of urination) 4. nerve problems (inability to walk on your toes or heels, numbness, loss of bowel or bladder control) 5. any other symptoms that concern you C. Please call the office at if you have any concerns or questions about your operation or recovery. D. No smoking! Smoking drastically decreases the chance of a solid fusion. E. Do not take any anti-inflammatory medications (Indocin, Advil, Motrin, Aspirin, Naprosyn, etc.) as these may inhibit the chance of a solid fusion. Tylenol is okay to take for pain. MANAGING PAIN AFTER SPINAL SURGERY 1. Narcotic medication is intended for short-term use and will be provided for surgical pain. Surgical pain usually lasts for a period of 4-6 weeks. Narcotic medication includes Percocet, Vicodin, Darvocet, Tylenol #3 or Lortab. 2. Longer-term pain is more appropriately treated with non-narcotic medication such as Tylenol ES. 3. Muscle spasm is not appropriately treated with narcotics. Muscle relaxers such as Soma, Flexeril or Skelaxin can be used along with Tylenol ES. 4. Remember that we all live with some "aches and pains". This is not unusual or uncommon after an injury or as we get older. a. Back pain is expected and may include muscle spasms for 4 to 6 weeks after surgery. The pain should gradually improve. If the pain worsens for no apparent reason, please contact the office. b. Intermittent leg pain may also be experienced and should not be concerned about unless it worsens for no apparent reason. If so, please contact the office. 5. We will provide appropriate medication within the normal guidelines of their prescribed use. We will also be very cautious and aware of potential abuse and extended duration of patients' medication needs. a. Pain medications are for your comfort and to assist with sleep and rest so that the tissue can heal. They are not provided in order to return to normal activity and should not be used through the day. To do so or worsening pain at night can result from ongoing tissue damage and development of tolerance to the prescribed medicine. 6. Please allow 2-3 days to process refills. Prescriptions will not be mailed but must be picked up at the office. FOLLOW UP VISIT: Keep your scheduled follow-up appointment. Any questions, please call the office at . Current Hospital Diet Patient's current hospital diet: Regular Diet Discharge Diet Recommended Diet: Regular Diet Procedures Procedures Performed: 1. Removal of posterior instrumentation L4-5 L5-S1. #2 expiration fusionL4-5 L5-S1. #3 lumbar decompression medial facetectomies foraminotomiesL2-3 L3-4. #4 posterior spinal fusion L2-3 L3-4. #5 placement posteriorsegmental instrumentation L2-3 L3-4. #6 interbody fusion L3-4. #7placement peek cage 13 x 26 mm at L3-4. #8 placement of locally harvestedmorselized autograft in the posterior lateral gutters. #9 placementInFUSE collagen sponge combined with master graft in the posterior lateralgutters and ostial amp in the interbody space. Pending Studies Studies pending at discharge: no Medical Emergencies . Who to Call and When: Medical Emergencies: If at any time you feel your situation is an emergency, please call 911 immediately. . Non-Emergent Contact Non-Emergency issues call your: Primary Care Provider . "Provider Documentation" section prepared by Keegan Hill. .
[2017-07-26 16:41] VITALS: BP 117/75; PULSE 76; TEMP 37.5; O2SAT 96
[2017-07-26] MEDS: CLONAZEPAM 1 MG TAB PO PRN (16:58)
[2017-07-26] MEDS ORDERED: NURSING VERBAL MED ORDER ONE (19:45)
[2017-07-26] MEDS: DOCUSATE SODIUM/SENNA 50/8.6MG TAB PO SCH (20:15)
[2017-07-26 23:02] VITALS: BP 97/64; PULSE 76; TEMP 36.6; O2SAT 98
[2017-07-27 07:12] VITALS: BP 122/73; PULSE 77; TEMP 37.4; O2SAT 96
[2017-07-27] MEDS: OXYCODONE HCL IR 5 MG TAB (IMMEDIATE RELEASE) PO PRN (13:48)
[2017-07-27 13:50] VITALS: BP 122/73; PULSE 77; TEMP 37.4; O2SAT 96
--- NOTE | 2017-07-27 15:51 | Discharge Summary ---
Orthopedic Discharge Summary Admission Date/Reason Jul 24, 2017 at 13:42 Lumbar Spinal Stenosis. Discharge Date/Disposition Jul 27, 2017 Home with services Diagnosis Principal Diagnosis: Lumbar spinal stenosis with neurogenic claudication Admission Physical Exam As per Admitting History & Physical. Hospital Course Patient underwent lumbar decompression and fusion tolerated this well was taken to the orthopedic floor postoperatively. Postop day #1 she was up and amatory progressive postop day #2. Postop day #3 the LEONIE drain had decreased appropriately pain is well controlled subsequently she was discharged home. Discharge orders and instructions can be found in the chart for further review. Discharge Instructions Please refer to the electronic Patient Visit Report (Discharge Instructions) for additional information.
== END 2017-07-27 14:20 | disposition home health service (06) | DRG 455 ==
LOC: C.ACU 07:42 → UNDOADMIN 13:42 → C.3E 13:42 → ENRESERV 14:39 → EDBEDREQ 15:53
PROVIDERS: ADMIT Orthopaedic Surgery Orthopaedic Surgery of the Spine; ATTEND Orthopaedic Surgery Orthopaedic Surgery of the Spine
PROC: 0ST20ZZ Resection of Lumbar Vertebral Disc, Open Approach (ICD-10-PCS; principal; 2017-07-24 11:15)
PROC: 0SP004Z Removal of Internal Fixation Device from Lumbar Vertebral Joint, Open Approach (ICD-10-PCS; principal; 2017-07-24 11:15)
PROC: 0SP304Z Removal of Internal Fixation Device from Lumbosacral Joint, Open Approach (ICD-10-PCS; principal; 2017-07-24 11:15)
PROC: 0SG00AJ Fusion of Lumbar Vertebral Joint with Interbody Fusion Device, Posterior Approach, Anterior Column, Open Approach (ICD-10-PCS; principal; 2017-07-24 11:15)
PROC: 0SG1071 Fusion of 2 or more Lumbar Vertebral Joints with Autologous Tissue Substitute, Posterior Approach, Posterior Column, Open Approach (ICD-10-PCS; principal; 2017-07-24 11:15)
DX: M48.062 Spinal stenosis, lumbar region with neurogenic claudication (principal); E78.5 Hyperlipidemia, unspecified; F32.9 Major depressive disorder, single episode, unspecified; F41.9 Anxiety disorder, unspecified; Z79.899 Other long term (current) drug therapy; Z88.0 Allergy status to penicillin; Z88.2 Allergy status to sulfonamides; Z88.6 Allergy status to analgesic agent; Z88.8 Allergy status to other drugs, medicaments and biological substances

== ENCOUNTER 2018-12-10 09:42 | Inpatient (IN) ==
--- NOTE | 2018-11-22 10:22 | PAT Medication Instructions ---
Medication Instructions Date of Service November 22, 2018 Home Medications clonazepam 2 mg PO TID NEEDED hydrocodone-acetaminophen 1 tab PO BID NEEDED omeprazole 20 mg PO DAILY NEEDED furosemide 20 mg PO DAILY NEEDED DO NOT take the morning of surgery furosemide 20 mg PO DAILY NEEDED Take morning of surgery With a small sip of water, OTHERWISE NOTHING TO EAT OR DRINK AFTER MIDNIGHT: clonazepam 2 mg PO TID NEEDED (if needed; stop 4 hours before surgery) hydrocodone-acetaminophen 1 tab PO BID NEEDED (if needed; stop 4 hours before surgery) omeprazole 20 mg PO DAILY NEEDED (if needed) Take evening before surgery clonazepam 2 mg PO TID NEEDED (if needed) hydrocodone-acetaminophen 1 tab PO BID NEEDED (if needed) omeprazole 20 mg PO DAILY NEEDED (if needed) furosemide 20 mg PO DAILY NEEDED (if needed) Other Notes If you have any questions please call us at [phone] or [phone] or [phone] or [phone]
--- NOTE | 2018-11-22 10:23 | Anesthesiology Consultation ---
Date of Service November 22, 2018 Assessment & Plan (1) Encounter for pre-operative examination: Chart Review Chart Review: Acceptable Risk for Surgery and Patient seen in Pre Admission Testing Consults Requested none Teaching & Discussion Pre-Anesthesia Teaching/Discussion Notes: Instructed NPO after midnight before surgery, except medications with 15 cc of water. Medication instructions provided according to the PAT guidelines. History Surgery Operation Date: 12/10/18 12:30 Proposed Procedures p Left Total Hip Arthroplasty - Eusebio Dickinson MD Height/Weight Height: 5 ft 3 in Weight: 90.2 kg Allergies Allergy/AdvReac Type Severity Reaction Status Date / Time penicillin V Allergy Severe HIVES/SOB Verified 11/19/18 12:26 bupropion Allergy Intermediate generalized Verified 11/19/18 12:26 swelling ibuprofen Allergy Intermediate edema Verified 11/19/18 12:26 Macrolide Antibiotics Allergy Intermediate pruritis, Verified 11/19/18 12:26 hives and rash Sulfa (Sulfonamide Allergy Intermediate RASH/HIVES Verified 11/19/18 12:26 Antibiotics) cephalexin Allergy Unknown ? Verified 11/19/18 12:26 reaction, CAN'T REMEMBER methylprednisolone AdvReac Intermediate CHF Verified 11/19/18 12:26 hydrocortisone AdvReac Mild pruritis Verified 11/19/18 12:26 Medications Home Medications Medication Instructions Recorded Confirmed Last Taken clonazepam 2 mg PO TID PRN 08/22/18 11/19/18 Unknown hydrocodone-acetaminophen 1 tab PO BID PRN 08/22/18 11/19/18 Unknown omeprazole 20 mg PO DAILY PRN 08/22/18 11/19/18 Unknown furosemide 20 mg PO DAILY PRN 11/19/18 11/19/18 Unknown Past Medical History Medical History Anxiety Degenerative disc disease Depression Diverticulitis Dyslipidemia GERD (gastroesophageal reflux disease) Hearing deficit RT EAR Hx of chronic heart failure Hx of glaucoma Hx of migraines Osteoarthritis Post traumatic stress disorder Exercise / Class Metabolic Activity III < 4 Walking/Shop/Light housework (Very limited due to knee and back pain. Uses a walker at times. Able to slowly climb stairs. Denies CP or SOB with activity. ) Past Family History Family History Father Family hx of colon cancer Past Surgical History Surgical History Cyst of knee joint LEFT KNEE REMOVED Fusion of spine H/O eye surgery RT/LEFT EYE LASER (FOR GLAUCOMA) H/O tubal ligation History of back surgery TOTAL 4-5 BACK SURGERY 07/24/17: MAC #3, ETT #7.0, Grade 1 View History of bilateral tubal ligation History of colonoscopy History of ear surgery MASS REMOVED AT AGE 12 (RT EAR) History of esophagogastroduodenoscopy (EGD) History of repair of rotator cuff LEFT (2 SURGERIES) History of surgery PAIN STIMULATOR IMPLANTED/REMOVAL History of tooth extraction Injury of ulnar nerve LEFT REPAIRED S/P lumbar fusion S/P rotator cuff repair LEFT Past Anesthesia History No Hx of Anesthesia Complications Daughter has become hypotensive with anesthesia in the past. 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 +Joint Pain (Knees, Back) +Reflux (controlled with diet and meds) Physical Exam Vital Signs BP: 141/66 P: 67 R: 16 T: 97.9 SPO2: 99% on RA Constitutional + obese ENMT Mouth: + dentures (Upper) Thyromental Distance: > or= 3.5 Finger Breadths (3) Mallampati Class: II Neck normal visual inspection; neck extension not limited Respiratory normal respiratory effort Auscultation: lungs clear to auscultation bilaterally Cardiovascular Rate/Rhythm: regular rate and regular rhythm Heart Sounds: no murmur Neurologic moves all extremities Psychiatric Orientation: alert and oriented x 3 +Tearful Testing Laboratory Results 11/22/18 11:21 11/22/18 11:21 PT 10.0 Seconds (9.0-12.0) 11/22/18 11:21 INR 1.0 (0.9-1.1) 11/22/18 11:21 APTT 23.2 Seconds (21.0-31.0) 11/22/18 11:21 Blood Type A Positive 11/22/18 11:21 Antibody Screen NEGATIVE 11/22/18 11:21 Electrocardiogram Date: 11/22/18 Findings: + SB @ (56), + RBBB and + no change from (01/01/18) Sinus arrhythmia Chest X-Ray Date: 11/22/18 Findings: + NAD FINDINGS: Lung volumes are normal. Lungs are clear. There is no pneumothorax or pleural effusion. Cardiac size is normal. Mediastinal contours are normal. There is no evidence for pulmonary edema. Several calcified pulmonary nodules are noted. Lumbar spine fusion hardware is partially imaged. Stress Test Date: 07/26/14 Type: DSE The stress echo is negative for inducible ischemia There was an adequate and appropriate heart rate and BP response to the dobutamine/atropine stress protocol. No symptoms were noted. The stress EKG response showed no evidence of ischemia. The left ventricular wall motion is normal. The left ventricular wall motion with stress is normal. The left ventricular EF increases normally with stress. No significant valvular disease is present.
--- NOTE | 2018-11-22 12:00 | XRay Report ---
XR chest Pre-admission PA/Lat CLINICAL HISTORY: Preoperative evaluation. COMPARISON STUDY: Chest radiograph October 16, 2016 FINDINGS: Lung volumes are normal. Lungs are clear. There is no pneumothorax or pleural effusion. Car diac size is normal. Mediastinal contours are normal. There is no evidence for pulmonary edema. Sever al calcified pulmonary nodules are noted. Lumbar spine fusion hardware is partially imaged. IMPRESSION: No acute cardiopulmonary findings. Electronically signed by: Ori Fam M.D. 11/22/2018 11:59 AM
[2018-11-22 14:14] LABS: Basophils # (auto) 0.03 K/uL (0-0.2); Basophils % (auto) 0.5 %; Eosinophils # (auto) 0.08 K/uL (0-0.5); Eosinophils % (auto) 1.2 %; Hematocrit (blood only) 40.7 % (37-47); Hemoglobin 14.1 g/dL (12.0-16.0); Immature Granulocytes # (auto) 0.01 K/uL (0.00-0.02); Immature Granulocytes % (auto) 0.2 %; Lymphocytes # (auto) 2.63 K/uL (1.2-3.4); Lymphocytes % (auto) 40.6 %; Mean Corpuscular Hgb Conc 34.6 g/dL (32-36); Mean Corpuscular Volume 90.4 fL (80-100); Mean Platelet Volume 10.1 fL (7.4-10.4); Monocytes # (auto) 0.58 K/uL (0.11-0.59); Neutrophils # (auto) 3.15 K/uL (1.4-6.5); Neutrophils % (auto) 48.5 %; Platelet Count 231 K/uL (130-400); RDW Coefficient of Variation 12.9 % (11.5-14.5); RDW Standard Deviation 42.8 fL (36.4-46.3); White Blood Count 6.48 K/uL (4.8-10.8)
[2018-11-22 14:22] LABS: BUN Creatinine Ratio 20.9 (10-20); Blood Urea Nitrogen 18 mg/dl (7-18); C Reactive Protein < 0.29 mg/dl (0-0.29); Calcium 8.9 mg/dl (8.5-10.1); Carbon Dioxide 28 mmol/L (21-32); Chloride 106 mmol/L (98-107); Creatinine Clr Calc Pharmacy 70.5 ml/min; Est GFR (African American) 82.2; Est GFR (Non-African American) 70.9; Glucose 89 mg/dl (70-99); Potassium 4.1 mmol/L (3.5-5.1); Sodium 139 mmol/L (136-145)
[2018-11-22 14:28] LABS: Partial Thromboplastin Ratio 0.9; Partial Thromboplastin Time 23.2 Seconds (21.0-31.0)
--- NOTE | 2018-12-04 11:37 | History and Physical Report ---
DATE OF ADMISSION: 12/10/2018 CHIEF COMPLAINT: Left hip pain. HISTORY OF PRESENT ILLNESS: This is a 63-year-old female from [place], who presents for treatment of her left hip. She has got a long history of back problems and had 5 back operations, most recently done by Dr. Hill in 07/2017. For the past 2 years, she has developed increased pain and discomfort in her left hip. She describes buttock pain, groin pain, thigh pain. She has difficulty putting her shoes and socks on. She cannot bend over very well. She has limited walking tolerance. She has difficulty going up and down steps. It is affecting her quality of life and ability to maintain an independent lifestyle. She lives by herself. She would like to proceed with left hip replacement. PAST MEDICAL HISTORY: 1. Depression. 2. Unspecified kidney disease. 3. History of mini stroke without sequelae. 4. Gastroesophageal reflux disease. 5. Chronic back pain. 6. Smoking history. PAST SURGICAL HISTORY: 1. Back surgery x5, last one in 07/[address] Hill. 2. Left ulnar nerve surgery. 3. Left shoulder surgery. 4. Left knee arthroscopy done by Dr. Don. ALLERGIES: TO PENICILLIN, SULFA AND DEPENDAL. CURRENT MEDICINES: Include, 1. Omeprazole for heartburn. 2. Hydrocodone for back pain. 3. Furosemide 20 mg a day. 4. Clonazepam 2-3 per day. SOCIAL HISTORY: A 63-year-old female. She is single. 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 She lives in [place]. Smokes half pack of cigarettes a day. FAMILY HISTORY: Noncontributory. REVIEW OF SYSTEMS: Significant for mini strokes without sequelae. She has got chronic back pain. No chest pain, no shortness of breath. No history of DVT or PE. PHYSICAL EXAMINATION: GENERAL: Pleasant, middle-aged female. Looks to be in reasonably good health. HEENT: Benign. NECK: Supple, no lymphadenopathy. LUNGS: Clear to auscultation. HEART: Has a regular rate and rhythm. ABDOMEN: Soft, nontender, nondistended. EXTREMITIES: Grossly neurovascularly intact except as follows. Examination of the left lower extremity reveals the patient ambulates independently. She does limp on this left side. Leg lengths appear equal. She has stiffness in the left hip with internal rotation to about neutral. It causes pain. Negative straight leg raise. Motor strength appears normal. X-RAYS: X-rays left hip reviewed. It shows moderately advanced left hip arthritis. She has got near complete loss of joint space. She has osteophytes around the femoral head. She has got some phleboliths as well. ASSESSMENT: A 63-year-old female with history of multiple back operations with chronic back pain with a left hip moderate to advanced degenerative joint disease. I do think her hip is causing a significant amount of pain, but not all of it. Certainly, she is going to have some chronic back pain. PLAN: We talked about treatment. She would like to have her left hip replaced. The risks and benefits of left total hip replacement were explained to the patient including but not limited to DVT, PE, , infection, neurological injury, vascular injury, bleeding problem, pain, limited range of motion, stiffness, failure to relieve her symptoms, incomplete relief of symptoms, need for further surgery in future, fracture, leg length inequality, nerve palsy, dislocation, etc. She is at increased risk of dislocation due to her multiple back surgeries and fusion. I will do the best we can to make her stable as possible. The patient apparently has a history of MRSA infection in the past. We will give her vancomycin and Ancef preoperatively. As far as discharge plans, she is planning to be discharged to home using [facility]. She does live by herself, so to make sure she has enough assistance.
[~2018-12-10 09:42] MED LIST changes: -ATROPINE SULFATE 0.1 MG/ML 5ML SYR IV PRN; +BUPIVACAINE 0.5 % 5 MG/1 ML PF 10ML VIAL ONE; +CEFAZOLIN 2000MG 2,000 MG/15 ML SYR IV SCH; -CLINDAMYCIN 600 MG/54 ML D5W 54 ML IV SCH; -CLON2TAB3 PO; -CeleBREX 200 MG CAP PO SCH; -EpHEDrine SULFATE INJ 50 MG/ML AMP IV PRN; +FAMOTIDINE 20 MG TAB PO SCH; -FURO20TA PO; +GABAPENTIN 600 MG DOSE PO SCH; -GABAPENTIN 600 MG PO SCH; -HYDR-3419 PO; -HYDROmorphone INJ 0.5 MG/0.5 ML SYR IV PRN; +LACTATED RINGER'S 1,000 ML IV SCH; -LACTATED RINGER'S 1000ML 1,000 ML IV SCH; +LR 500ML BOLUS, THEN 15ML/HR IV SCH; +METOCLOPRAMIDE HCL 10 MG TABLET PO SCH; -ONDANSETRON INJ 2 MG/ML 2 ML VIAL IV PRN; -PRLSR20 PO; +SCOPOLAMINE 1.5 MG TDSY TD SCH; +TRANEXAMIC ACID 1,000 MG **IV Pre-op IV SCH; +VANCOMYCIN HCL 1,250 MG in SODIUM CHLORIDE 0.9% 250 ML IV SCH; +[UNRECOGNIZED DRUG - REMARK] SCH
[2018-12-10] MEDS ORDERED: VANCOMYCIN HCL 1 GM/270 ML BAG ONE (10:08)
[2018-12-10] MEDS ORDERED: CEFAZOLIN 2,000 MG/15 ML IV PUSH IV ONE (10:55)
--- NOTE | 2018-12-10 11:12 | History & Physical Bridge Note ---
Date of Service December 10, 2018 History & Physical Bridge Note I have examined the patient, reviewed the History & Physical and in the interval since the performance of the History & Physical I have noted the following changes of clinical significance: no changes noted
[2018-12-10] MEDS ORDERED: MIDAZOLAM HCL 1 MG/ML 2ML VIAL ONE (11:49)
[2018-12-10] MEDS ORDERED: PHENYLEPHRINE HCL 10 MG/ML VIAL ONE (11:53)
[2018-12-10] MEDS ORDERED: MoRPHine SULFATE PF 1 MG/ML 10 ML AMP/VIAL ONE (12:10)
[2018-12-10] MEDS ORDERED: fentaNYL citrate 100 MCG/2 ML VIAL ONE (12:12)
[2018-12-10] MEDS ORDERED: ePHEDrine sulfate 50 MG/ML AMP IV PRN ×2 (12:18→14:41)
[2018-12-10] MEDS ORDERED: ONDANSETRON INJ 2 MG/ML 2 ML VIAL IV PRN ×3 (12:18→15:59)
[2018-12-10] MEDS ORDERED: ATROPINE SULFATE 0.1 MG/ML 10ML SYR IV PRN (12:18)
[2018-12-10] MEDS ORDERED: HYDROmorphone INJ 1 MG/ML SYRINGE IV PRN (12:18)
[2018-12-10] MEDS ORDERED: fentaNYL citrate 100 MCG/2 ML VIAL IV PRN (12:18)
[2018-12-10] MEDS ORDERED: BACITRACIN INJ 50,000 UNIT VIAL ONE (13:08)
[2018-12-10] MEDS ORDERED: BUPIVACAINE/EPINEPHRINE 0.5% MPF 1:200,000 30 ML VIAL ONE (13:08)
[2018-12-10] MEDS ORDERED: ONDANSETRON INJ 2 MG/ML 2 ML VIAL ONE (13:58)
[2018-12-10] MEDS ORDERED: PROPOFOL IV EMULSION 10 MG/ML 20 ML VIAL IV ONE (13:58)
[2018-12-10] MEDS ORDERED: LIDOCAINE HCL 2% 2 ML VIAL/AMP(20MG/ML) INFIL ONE (13:58)
[2018-12-10] MEDS ORDERED: NALBUPHINE HCL INJ 10 MG/ML AMP IV PRN (14:41)
[2018-12-10] MEDS ORDERED: MoRPHine SULFATE PF 1 MG/ML 10 ML AMP/VIAL INT SPINAL ONE (14:41)
[2018-12-10] MEDS ORDERED: NALOXONE HCL 1 MG in SODIUM CHLORIDE 0.9% 1000ML 1,000 ML IV PRN (14:41)
[2018-12-10] MEDS ORDERED: NALOXONE HCL 0.4 MG/1 ML VIAL/CARP IV PRN ×2 (14:41→15:59)
[2018-12-10] MEDS ORDERED: LACTATED RINGER'S 500 ML IV PRN (14:41)
[2018-12-10] MEDS ORDERED: DiphenhydrAMINE HCL 50 MG/ML VIAL IV PRN ×2 (14:41→15:59)
[2018-12-10] MEDS ORDERED: MEPERIDINE HCL 25 MG/ML CARP IV PRN (14:41)
[2018-12-10] MEDS ORDERED: MoRPHine SULFATE 2 MG/ML CARP IV PRN (14:41)
[2018-12-10] MEDS ORDERED: NALOXONE HCL 0.08 MG in SYRINGE 1.8 ML IV PRN (14:41)
[2018-12-10] MEDS ORDERED: SODIUM CHLORIDE 0.9% 1000ML 1,000 ML IV SCH (14:45)
[2018-12-10] MEDS ORDERED: DC INTRASPINAL MORPHINE SCH (14:45)
[2018-12-10] MEDS ORDERED: NO NARCOTICS OR SEDATIVES SCH (14:45)
--- NOTE | 2018-12-10 15:05 | Post Operative Brief Note ---
PG Immediate Post Op with CF Date of Surgery December 10, 2018 Pre & Post Diagnosis Operation Date: 12/10/18 12:30 Pre-Op Diagnosis: Left Hip Degenerative Joint Disease Post-Op Diagnosis: Left Hip Degenerative Joint Disease Procedure Operation Date: 12/10/18 12:30 Actual Procedures p Left Total Hip Arthroplasty, Uncemented(Left) - Eusebio Dickinson MD Surgeon Eusebio Dickinson MD Food Sales Clerk Diony, PAC Estimated Blood Loss 200 Findings Consistent with Post-Op Diagnosis Fluids 1200 cc Specimens Specimen Description: Permanent Specimen A: Left Femoral Head Drains Crow Catheter Anesthesia Type Spinal MAC Complications none Disposition Accompanied Patient To Recovery: Yes Disposition: Recovery Room
--- NOTE | 2018-12-10 15:33 | XRay Report ---
XR hip 1V LT w pelvis CLINICAL HISTORY: Degenerative arthritis. Postoperative study COMPARISON: 06/25/2017 DISCUSSION: Postsurgical changes are present within the lower lumbar spine. There are postsurgical ch anges of a total left hip arthroplasty. There are no acute fractures. There is no dislocation. There are overlying skin cyril. There is air within the soft tissues surrounding the left hip consistent with recent surgery. IMPRESSION: Postsurgical changes of a total left hip arthroplasty. No acute fractures or dislocations identified Electronically signed by: Valente Lynn M.D. 12/10/2018 3:31 PM
--- NOTE | 2018-12-10 15:34 | Anesthesiology Progress Note ---
Date of Service December 10, 2018 Anesthesia Post Procedure Vital Signs Vital Signs: Temp Pulse Pulse Resp BP BP Pulse Ox 12/10/18 15:25 69 16 112/69 96 12/10/18 15:15 67 16 108/59 L 96 12/10/18 15:06 36.6 C 70 16 112/55 L 96 12/10/18 10:37 36.6 C 66 18 124/68 99 Transfer of Care Handoff Completed per policy Notes Mental Status: alert / awake / arousable Patient Amnestic to Procedure: Yes Nausea / Vomiting: adequately controlled Pain: adequately controlled Airway Patency, RR, SpO2: stable & adequate BP & HR: stable & adequate Hydration State: stable & adequate Neuraxial Anesthesia: was administered and sensory block is resolving Anesthetic Complications: no major complications apparent and Pt Satisfied with anesthetic care
[2018-12-10] MEDS ORDERED: FUROSEMIDE 20 MG TAB PO PRN (15:59)
[2018-12-10] MEDS ORDERED: HYDROmorphone INJ 0.5 MG/0.5 ML SYR IV PRN (15:59)
[2018-12-10] MEDS ORDERED: METOCLOPRAMIDE HCL INJ 5 MG/ML 2 ML VIAL IV PRN (15:59)
[2018-12-10] MEDS ORDERED: VANCOMYCIN CONSULT ACTIVE PRN (15:59)
[2018-12-10] MEDS ORDERED: MAGNESIUM HYDROXIDE SUSP 30 ML UDC PO PRN (15:59)
[2018-12-10] MEDS ORDERED: HYDROmorphone HCL 2 MG TAB PO PRN (15:59)
[2018-12-10] MEDS ORDERED: BISACODYL 10 MG SUPP PR PRN (15:59)
[2018-12-10] MEDS ORDERED: ALUMINUM/MAGNESIUM SUSP 30 ML UDC PO PRN (15:59)
[2018-12-10] MEDS ORDERED: PANTOprazole 40 MG TAB PO PRN (16:30)
[2018-12-10] MEDS: SODIUM CHLORIDE 0.9% 1000ML 1,000 ML IV SCH (16:31)
[2018-12-10] MEDS: KETOROLAC 30 MG/ML VIAL IV SCH ×2 (16:32→21:47)
[2018-12-10] MEDS: CHECK SCOPOLAMINE PATCH PLACEMENT SCH (17:59)
[2018-12-10] MEDS: ASCORBIC ACID 500 MG TAB PO SCH (18:01)
[2018-12-10] MEDS: FERROUS GLUCONATE 324 MG TAB PO SCH (18:01)
[2018-12-10] MEDS: CEFAZOLIN 2000MG 2,000 MG/15 ML SYR IV SCH (18:56)
[2018-12-10] MEDS ORDERED: TRANEXAMIC ACID 1,000 MG in 0.9 % SODIUM CHLORIDE 100 ML IV SCH (21:07)
[2018-12-10] MEDS: ASPIRIN 81 MG ECTAB PO SCH (21:13)
[2018-12-10] MEDS: ACETAMINOPHEN 500 MG TAB PO SCH (21:13)
[2018-12-10] MEDS: SENNA 8.6 MG TAB PO SCH (21:14)
[2018-12-10] MEDS: DOCUSATE SODIUM 100 MG CAP PO SCH (21:14)
[2018-12-10] MEDS ORDERED: VANCOMYCIN HCL 1,500 MG in SODIUM CHLORIDE 0.9% 250 ML IV SCH (22:00)
--- NOTE | 2018-12-10 23:06 | Operative Report ---
DATE OF OPERATION: 12/10/2018 SURGEON: Eusebio Dickinson MD HAT RENOVATOR: CLARISA Billings PREOPERATIVE DIAGNOSIS: Left hip degenerative joint disease. POSTOPERATIVE DIAGNOSIS: Left hip degenerative joint disease. PROCEDURE PERFORMED: Left uncemented ceramic on highly cross-linked polyethylene total hip arthroplasty. COMPLICATIONS: None. ESTIMATED BLOOD LOSS: 200 mL. FLUID REPLACEMENT: 1200 mL crystalloid fluid replacement. ANESTHESIA: Spinal. DRAINS: None. SPECIMENS: Left femoral head sent for pathology. OPERATIVE INDICATIONS: The patient is a 63-year-old female who has a long history of pain issues. She has had 5 back surgeries. Over the past several years, she developed increased pain, discomfort, and stiffness and difficulty with her left hip. X-ray showed moderate to advanced hip arthritis. She failed conservative treatment. She strongly desired hip arthroplasty. She was made fully aware that this was not going to fix all of her pain issues, but hopefully treat a portion of them. The patient has had 7 spine surgeries with extensive fusion. As a result, we really tried to place a little more anteversion in her component and maximize her stability due to her increased risk of dislocation. This involved putting the largest head possible in this polyethylene liner. OPERATIVE FINDINGS: Operative findings revealed advanced left hip DJD. 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 The acetabulum was not as diseased. She had a moderate sized joint effusion. Not a lot of osteophyte formation. OPERATIVE IMPLANTS: Operative implants consisted of: 1. A Biomet G7 size 50 acetabular shell. 2. 6.5 cancellous acetabular screws, 1 at 35 mm in length and 1 at 25 mm in length. 3. An apex hole eliminator. 4. A highly cross-linked polyethylene liner with a 50 mm outer diameter and 36 mm inner diameter liner. 5. A DePuy Corail size 10 KLA femoral stem. 6. +1.5/36 mm ceramic articular ball. OPERATIVE PROCEDURE: The patient was taken to the operating room, identified and placed on the operating room table in supine position. All contact areas were appropriately padded. IV antibiotics were provided by anesthesia team. A spinal anesthetic had been implemented in the holding area. Crow catheter was placed in sterile fashion. The patient was then placed in the right lateral decubitus position. An axillary roll was placed. Stlberg hip positioner was used for positioning. Left hip and leg were then prepped and draped in the usual sterile fashion. A posterolateral approach to the left hip was then performed through a curvilinear incision centered over the greater trochanter. Sharp dissection was carried through subcutaneous tissue down to the level of the IT band and gluteal fascia. The IT band and gluteal fascia were incised longitudinally in line with skin incision. The underlying greater trochanteric bursa was excised. The piriformis and external rotators were tagged and then taken off the posterior aspect of the hip joint capsule. Great care was taken throughout the procedure to protect the sciatic nerve at all times. Posterior capsulotomy was then performed leaving a large flap for later repair. Hip was internally rotated and dislocated. Femoral neck osteotomy cut was made with the final cut about 10 mm above the lesser trochanter. Femoral head was removed and sent for pathology. The femur was retracted anteriorly. Attention was then drawn to the acetabulum. The acetabular labrum was excised. The pulvinar fat was excised. Sequential reaming of the acetabulum was then performed beginning with size 43 and progressing up to 49. I did ream a little bit with 50 as it was fairly tight. A 50 mm Biomet G7 acetabular shell was then placed in about 40 degrees of lateral opening and 20-25 degrees of anteversion. I did try to put a little bit more anteversion due to her increased risk of posterior dislocation due to her spinal fusion. This cup was then secured with two 6.5 cancellous acetabular screws. A trial liner was placed. We placed a liner about 36 head to maximize her stability. Attention was then drawn to the femur. The proximal femur was entered with [employer] cutter followed by a canal finder. I then broached beginning with a size 8 and progressing up to a 10. We got excellent fit with a 10. I then trialed the hip. The +5 articular ball was fully stable, but just seemed a bit tight in extension. The +1.5/36 mm articular ball provided appropriate soft tissue tension and full stability and full extension and external rotation and flexion to 90 degrees, internal rotation over 70 degrees. We really tried to maximize her stability. I elected to place these implants. All trial implants were removed. An apex hole eliminator was placed. A highly cross-linked polyethylene liner with a 50 mm outer diameter, 36 mm inner diameter was placed. A DePuy Corail size 10 KLA femoral stem was impacted in position. A +1.5/36 mm articular ball was placed. Hip was located and once again found to be stable. Attention was then drawn toward closing. The wound was irrigated with copious amounts of pulsatile lavage solution. I did inject locally with 60 mL of 0.5% Marcaine with epinephrine. The posterior capsule and external rotators were then repaired through drill holes in the posterior trochanter with #2 Ti-Cron suture. The IT band and gluteal fascia were then closed with #1 PDS suture in a running fashion. The subcutaneous tissue was then closed with 2 layers, with the deep layer #2 Vicryl suture, and the subcutaneous with 2-0 dexon suture, skin was then closed with skin cyril. Leg was then cleaned and dried and a sterile dressing with Xeroform, 4 x 4, sterile ABD pad and foam tape was applied. The patient was then transferred to the recovery room in stable condition. The patient tolerated the procedure well with no complications. All needle and sponge counts were correct at the end of the operation. I attest to the content of the Intraoperative Record and any orders documented therein. Any exceptions are noted below. JOSE
[2018-12-11] MEDS: CEFAZOLIN 2000MG 2,000 MG/15 ML SYR IV SCH (02:54)
[2018-12-11] MEDS: KETOROLAC 30 MG/ML VIAL IV SCH ×4 (03:04→21:39)
[2018-12-11] MEDS: ACETAMINOPHEN 500 MG TAB PO SCH ×3 (06:13→21:39)
[2018-12-11] MEDS: SODIUM CHLORIDE 0.9% 1000ML 1,000 ML IV SCH (06:26)
[2018-12-11 07:18] LABS: Basophils # (auto) 0.01 K/uL (0-0.2); Basophils % (auto) 0.2 %; Eosinophils # (auto) 0.05 K/uL (0-0.5); Hemoglobin 10.5 g/dL (12.0-16.0); Immature Granulocytes # (auto) 0.01 K/uL (0.00-0.02); Immature Granulocytes % (auto) 0.2 %; Lymphocytes # (auto) 1.26 K/uL (1.2-3.4); Lymphocytes % (auto) 24.3 %; Mean Corpuscular Hgb Conc 33.9 g/dL (32-36); Mean Corpuscular Volume 93.4 fL (80-100); Mean Platelet Volume 9.5 fL (7.4-10.4); Monocytes # (auto) 0.53 K/uL (0.11-0.59); Monocytes % (auto) 10.2 %; Neutrophils # (auto) 3.32 K/uL (1.4-6.5); Neutrophils % (auto) 64.1 %; Platelet Count 139 K/uL (130-400); RDW Coefficient of Variation 13.3 % (11.5-14.5); RDW Standard Deviation 45.3 fL (36.4-46.3); Red Blood Count 3.32 M/uL (4.2-5.4); White Blood Count 5.18 K/uL (4.8-10.8)
[2018-12-11 07:52] LABS: BUN Creatinine Ratio 22.1 (10-20); Calcium 7.9 mg/dl (8.5-10.1); Creatinine Clr Calc Pharmacy 50.8 ml/min; Est GFR (African American) 53.5; Est GFR (Non-African American) 46.2; Potassium 4.3 mmol/L (3.5-5.1)
[2018-12-11] MEDS: TAPENTADOL HCL ER 50 MG TABCR PO SCH ×2 (09:05→20:27)
[2018-12-11] MEDS: MULTIVITAMIN TAB PO SCH (09:07)
[2018-12-11] MEDS: ASCORBIC ACID 500 MG TAB PO SCH ×2 (09:07→16:29)
[2018-12-11] MEDS: FERROUS GLUCONATE 324 MG TAB PO SCH ×2 (09:07→16:30)
[2018-12-11] MEDS: ASPIRIN 81 MG ECTAB PO SCH ×2 (09:08→20:27)
[2018-12-11] MEDS: DOCUSATE SODIUM 100 MG CAP PO SCH ×2 (09:08→20:27)
[2018-12-11] MEDS: CHECK SCOPOLAMINE PATCH PLACEMENT SCH ×3 (09:08→16:18)
[2018-12-11] MEDS: clonazePAM 1 MG TAB PO PRN ×2 (09:13→18:10)
--- NOTE | 2018-12-11 09:59 | Progress Note ---
DATE: 12/11/2018 SUBJECTIVE: A 63-year-old female postop day 1 from a left hip replacement. She is doing pretty well. Having some pain which she rates at a 6/10. No chest pain or shortness of breath. Not feeling dizzy or lightheaded. OBJECTIVE: VITAL SIGNS: Temperature 37.0. Vital signs stable. GENERAL: Shows a pleasant elderly female. She is lying in bed, looks reasonably comfortable. LUNGS: Clear to auscultation. HEART: Regular rate and rhythm. ABDOMEN: Soft, nontender, nondistended. EXTREMITIES: Grossly neurovascularly intact except as follows. Examination of the left lower extremity reveals the dressing to be clean, dry and intact. Leg lengths were equal. Hip is located. She can dorsiflex and plantarflex her foot appropriately. She is neurologically intact. LABORATORY DATA: Hemoglobin 10.5. Hematocrit 31.0. Electrolytes are stable. ASSESSMENT: A 63-year-old female with a history of multiple back operations postop day 1 from a left hip replacement, doing pretty well. Her pain is reasonably well controlled. She has had pain control issues preoperatively. She is anemic, but without symptoms. PLAN: 1. DVT prophylaxis including thigh-high TEDs, SCDs and aspirin twice a day. 2. PT/OT. Weight bear as tolerated. Left total hip protocol. 3. Pain control. Doing reasonably well with current pain regimen. I do not anticipate she is going to report a great relief of her pain as she has been on chronic narcotics, but we will continue to manage this appropriately. 4. Disposition. She lives by herself. We will see how therapy goes today. She might need a rehab or alf facility stay. I think that would be in her best interest whether she accepts or not. We will see how things go in therapy.
[2018-12-11] MEDS ORDERED: INFLUENZA ADMINISTRATION CHARGE ONE (19:15)
[2018-12-11] MEDS ORDERED: INFLUENZA VIRUS QUAD VACCINE 0.5 ML SYR IM ONE (19:15)
[2018-12-11] MEDS ORDERED: PNEUMOCOCCAL ADMINISTRATION CHARGE ONE (19:30)
[2018-12-11] MEDS ORDERED: PNEUMOCOCCAL POLYSACCHARIDES 25 MCG/0.5 ML VIAL/SYR IM ONE (19:30)
[2018-12-11] MEDS: SENNA 8.6 MG TAB PO SCH (20:27)
[2018-12-12] MEDS: CHECK SCOPOLAMINE PATCH PLACEMENT SCH ×2 (00:01→09:41)
[2018-12-12] MEDS: KETOROLAC 30 MG/ML VIAL IV SCH ×2 (04:49→10:28)
[2018-12-12 06:13] LABS: BUN Creatinine Ratio 25.8 (10-20); Calcium 8.2 mg/dl (8.5-10.1); Creatinine Clr Calc Pharmacy 63.1 ml/min; Est GFR (African American) 69.4; Est GFR (Non-African American) 59.9
[2018-12-12] MEDS: ACETAMINOPHEN 500 MG TAB PO SCH (06:15)
--- NOTE | 2018-12-12 09:07 | Progress Note ---
DATE: 12/12/2018 SUBJECTIVE: A 63-year-old female postop day #2 from a left hip replacement. She is doing pretty well. Intermittent bouts of pain, but nothing out of the ordinary. She says she is getting around quite well. No chest pain or shortness of breath. Not feeling dizzy or lightheaded. OBJECTIVE: VITAL SIGNS: Temperature 37.3. Vital signs stable. GENERAL: Physical examination shows pleasant, middle-aged female. She is sitting in her bedside chair eating breakfast. Looks comfortable. EXTREMITIES: Examination of the left leg reveals the dressing to be clean, dry and intact. Leg lengths are equal. Hip is located. She is neurologically intact. LABORATORY DATA: Her electrolytes are improved with creatinine back into the normal range. ASSESSMENT: A 63-year-old female postop day #2 from a left total hip replacement, doing reasonably well. She does have chronic pain issues and pain seems to be reasonably well controlled. Hip is located. She is neurologically intact. PLAN: 1. DVT prophylaxis including thigh-high TEDs, SCDs and aspirin twice a day. 2. PT/OT. Weight bear as tolerated. Left total hip protocol. 3. Pain control, doing pretty well with current pain regimen. 4. Disposition: Plan to discharge to home with some home health once medically stable and safe getting around.
[2018-12-12] MEDS: FERROUS GLUCONATE 324 MG TAB PO SCH (09:40)
[2018-12-12] MEDS: ASCORBIC ACID 500 MG TAB PO SCH (09:40)
[2018-12-12] MEDS: TAPENTADOL HCL ER 50 MG TABCR PO SCH (09:40)
[2018-12-12] MEDS: MULTIVITAMIN TAB PO SCH (09:40)
[2018-12-12] MEDS: ASPIRIN 81 MG ECTAB PO SCH (09:40)
[2018-12-12] MEDS: DOCUSATE SODIUM 100 MG CAP PO SCH (09:40)
== END 2018-12-12 11:18 | disposition home health service (06) | DRG 470 ==
LOC: ASU 09:42 → 3E 15:10